=== PATIENT | male | born 1970 | race Caucasian/White ===

== ENCOUNTER 2023-04-20 13:57 | Observation (INO) | payer OTHER, SELFPAY ==
[2023-03-24 13:34] VITALS: BMI 30.2
--- NOTE | 2023-04-19 08:14 | SUR.PREOP ---
Called patient back to answer his questions regarding his upcoming procedure and admission.
--- NOTE | 2023-04-20 12:04 | ADMGEN ---
This patient, Regan Mitchell, was admitted to Medical Room 247-. Patient/family oriented to hospital policies and general routines including ID bracelet, bed and alarms, visiting hours, pain management, procedures, bathroom and other care routines, personal items, smoking policy, room service/diet, and visiting hours. Information on how to activate the Rapid Response Team has been discussed. Patient/Family are encouraged to report perceived risks to care and to ask questions if they do not understand what they are told or what they should do.
--- NOTE | 2023-04-20 12:56 | WPDGICN ---
Assessment and Plan Assessment and plan (1) BRBPR (bright red blood per rectum): Code(s): K62.5 - Hemorrhage of anus and rectum Status: Acute Assessment and Plan: probably perianal source but never had colonoscopy, he is admitted to get bowel prep in the hospital since will be hard for him to do it at home then will do colonoscopy tomorrow (2) Colon cancer screening: Code(s): Z12.11 - Encounter for screening for malignant neoplasm of colon Status: Acute Assessment and Plan: colonoscopy tomorrow (3) Neurogenic bowel: Code(s): K59.2 - Neurogenic bowel, not elsewhere classified Status: Acute Assessment and Plan: from spinal cord injury (4) Spinal cord injury: Status: Acute (5) Lower abdominal pain: Code(s): R10.30 - Lower abdominal pain, unspecified Status: Acute GI Consult Note Consult date/time: 04/20/23 12:56 Reason for consult: hemorrhoids, colon screening, brbpr HPI: Regan Mitchell is a 53 year old male with history of spinal cord injury and T10 paraplegia (since 2000, T7-T12 fracture, S/P T9-L1 posterior spinal fusion after falling off a roof) with neurogenic bowel who never had colonoscopy, normally will have BM every other day but he uses digital stimulation and suppository in order to have BM since he does not have any sensation. For last 2 years noticed intermittent episodes of blood in the stools with his bowel movement and intermittent mild abdominal discomfort. He can not complete bowel prep at home because neurological condition and he is being admitted to have bowel prep in the hospital and tomorrow will do colonoscopy. Review of Systems Constitutional: Constitutional: Denies chills Eyes: Eyes: Denies blurry vision ENT: Reports Normal hearing present Cardiovascular: Cardiovascular: Denies chest pain Respiratory: Respiratory: Denies cough Gastrointestinal: Gastrointestinal: Reports no additional gastrointestinal complaints Musculoskeletal: Comments: paraplegia Integumentary/Breasts: Skin/Breast: Denies rash Neurologic: Comments: paraplegia Psychiatric: Psychiatric: Denies confusion [facility] Past Medical History Medical History (Updated 04/20/23 @ 13:02 by Coy Perez MD) BRBPR (bright red blood per rectum) Colon cancer screening Lower abdominal pain Neurogenic bowel Rectal pain Spinal cord injury Social History Social History Smoking status: Never smoker Alcohol intake: never Substance use: never Substance use type: does not use Do You Feel Safe in your Home?: Yes Lack of Transportation: No Lack of Food: Never True Current Housing: I Have Housing Concerned About Future Housing: No Difficulty Paying Gas/Electric Bills: No Difficulty Paying for Meds: No Currently Unemployed: No Education: Don't Know Difficulty w/ Childcare or Family Care: No Living arrangements: with family Spiritual care concerns: No Meds Home Medications and Allergies Home Medications Medication Instructions Recorded Confirmed Type ascorbate calcium (vitamin C) 500 500 mg PO DAILY 03/09/23 03/24/23 History mg tablet baclofen 20 mg tablet 20 mg PO QHS 03/09/23 03/24/23 History calcium carbonate 500 mg calcium 500 mg PO DAILY 03/09/23 03/24/23 History (1,250 mg) tablet (Oyster Shell Calcium 500) cholecalciferol (vitamin D3) 25 25 mcg PO DAILY 03/09/23 03/24/23 History mcg (1,000 unit) capsule cranberry [id number] 1 tablet PO DAILY 03/09/23 03/24/23 History coagulans 250 mg-30 mg-15 mg tablet (Azo Cranberry Plus Probiotic) desmopressin 0.1 mg tablet 0.1 mg PO BID 03/09/23 03/24/23 History diazepam 5 mg tablet 5 mg PO TID PRN Anxiety 03/09/23 03/24/23 History fesoterodine 8 mg tablet,extended 8 mg PO DAILY 03/09/23 03/24/23 History release 24 hr (Toviaz) hydrocodone 5 mg-acetaminophen 325 1 tablet PO Q8H PRN Pain 03/09/23 03/24/23 His
--- NOTE | 2023-04-20 13:14 | PHAR ---
Pharmacy verified home meds: Trospium CL 20 mg tablets Take 3 tablets by mouth twice daily Fesoterodine 8 mg ER tablets Take 1 tablet by mouth daily
--- NOTE | 2023-04-20 13:53 | PM.IMHP ---
H&P: HPI History of Present Illness Date/Time: 04/20/23 14:00 Chief Complaint: Bowel changes. Narrative: This is a 53-year-old male with history of spinal cord injury and T10 paraplegia and neurogenic bowel who is being directly admitted for bowel prep for colonoscopy tomorrow per Dr. Jorge to evaluate change in bowels including occasional bright red blood per rectum and intermittent abdominal and rectal pain. He is a paraplegic, lives alone, and is unable to do prep at home. He is being admitted in this setting for bowel prep with plans for colonoscopy tomorrow to evaluate these findings. He has completed his prep and reports only passing a small amount of stool on 2 separate occasions. He typically uses digital stimulation ordering of bowel movements at home and he is wondering if he needs to try that this evening. He has not passed much gas and he does have some generalized abdominal discomfort. He denies nausea and vomiting. No significant pain. He also denies fever. Review of Systems Review of Systems: Twelve systems were reviewed and are negative except for as per HPI. [facility] Past Medical History Medical History (Updated 04/20/23 @ 14:10 by Odilia Lancaster PA-C) Neurogenic bladder Neurogenic bowel Spinal cord injury (2000) Fall from roof, fracture T7 through T12. Surgical History Surgical History (Updated 04/20/23 @ 14:10 by Odilia Lancaster PA-C) History of open reduction and internal fixation (ORIF) procedure Left femur fracture. History of spinal surgery T9-L1 fusion. Social History Social History (Updated 04/20/23 @ 14:12 by Odilia Lancaster PA-C) Social History: Surrogate medical decision maker: Gilda Mitchell, mother. Code status: Full code. Smoking status: Never smoker Alcohol intake: never Substance use: never Substance use type: does not use Do You Feel Safe in your Home?: Yes Lack of Transportation: No Lack of Food: Never True Current Housing: I Have Housing Concerned About Future Housing: No Difficulty Paying Gas/Electric Bills: No Difficulty Paying for Meds: No Currently Unemployed: No Education: Don't Know Difficulty w/ Childcare or Family Care: No Living arrangements: with family Spiritual care concerns: No Meds Home Medications and Allergies Home Medications Medication Instructions Recorded Confirmed Type ascorbate calcium (vitamin C) 500 500 mg PO DAILY 03/09/23 03/24/23 History mg tablet baclofen 20 mg tablet 20 mg PO QHS 03/09/23 03/24/23 History calcium carbonate 500 mg calcium 500 mg PO DAILY 03/09/23 03/24/23 History (1,250 mg) tablet (Oyster Shell Calcium 500) cholecalciferol (vitamin D3) 25 25 mcg PO DAILY 03/09/23 03/24/23 History mcg (1,000 unit) capsule cranberry nacn-F-igneuled 1 tablet PO DAILY 03/09/23 03/24/23 History coagulans 250 mg-30 mg-15 mg tablet (Azo Cranberry Plus Probiotic) desmopressin 0.1 mg tablet 0.1 mg PO BID 03/09/23 03/24/23 History diazepam 5 mg tablet 5 mg PO TID PRN Anxiety 03/09/23 03/24/23 History fesoterodine 8 mg tablet,extended 8 mg PO DAILY 03/09/23 03/24/23 History release 24 hr (Toviaz) hydrocodone 5 mg-acetaminophen 325 1 tablet PO Q8H PRN Pain 03/09/23 03/24/23 History mg tablet hydrocortisone 2.5 % topical cream 1 applic RECTAL BID 2 weeks #30 03/09/23 03/24/23 Rx with perineal applicator grams multivitamin (Daily Multi-Vitamin 1 tablet PO DAILY 03/09/23 03/24/23 History tablet) sennosides 8.6 mg capsule (senna) 8.6 mg PO DAILY 03/09/23 03/24/23 History terazosin 10 mg capsule 10 mg PO QHS 03/09/23 03/24/23 History trospium 20 mg tablet 20 mg PO BID 03/09/23 03/24/23 History Allergies Allergy/AdvReac Type Severity Reaction Status Date / Time No Known Allergies Allergy Unknown Verified 04/20/23 12:23 Exam Narrative: General: Well-developed, nontoxic-appearing male lying on his right side in bed. Weight: 90 kg. BMI: 30.2. HEENT
[2023-04-20 14:50] LABS: Anion Gap 4 mmol/L (8-16); Blood Urea Nitrogen 9 mg/dL (9-20); Calcium 8.7 mg/dL (8.4-10.2); Carbon Dioxide 31 mmol/L (22-30); Chloride 103 mmol/L (98-107); Estimated CRCL calculation 153 ml/min; Estimated Glomerular Filt Rate > 60; Glucose 114 mg/dL (65-110); Magnesium 1.9 mg/dL (1.6-2.3); Potassium 3.1 mmol/L (3.4-5.0); Sodium 138 mmol/L (137-145)
[2023-04-20 15:25] VITALS: BP 139/77; PULSE 67; RESP 16; TEMP 36.4; O2SAT 100
[2023-04-20] MEDS: BISACODYL 5 MG TABLET EC 20 MG PO (16:07)
[2023-04-20] MEDS: polyethylene glycoL 3350 238 GM BOTTLE PO (16:07)
[2023-04-20 17:03] VITALS: PULSE 67; RESP 16; O2SAT 100
[2023-04-20 20:34] VITALS: BP 136/68; PULSE 61; RESP 16; TEMP 36.9; O2SAT 97
[2023-04-20] MEDS: TERAZOSIN HCL 5 MG CAPSULE 10 MG PO (21:48)
[2023-04-20] MEDS: HYDROCORTISONE 2.5% CREAM 30 GM TUBE 1 APPLIC RECTAL (21:48)
[2023-04-20] MEDS: BACLOFEN 10 MG TABLET 20 MG PO (21:48)
[2023-04-21] MEDS: MAGNESIUM CITRATE 300 ML BTL PO ×2 (01:06→06:37)
[2023-04-21] MEDS: BISACODYL 10 MG SUPPOSITORY RECTAL ×2 (01:06→16:51)
[2023-04-21] MEDS: POTASSIUM CHLORIDE INJ 40 MEQ in SODIUM CHLORIDE 0.9% IV 500 ML 130 MEQ IVPB (01:06)
[2023-04-21 05:58] LABS: Hematocrit 43.3 % (42.0-52.0); Hemoglobin 14.6 g/dL (14.0-18.0); Mean Corpuscular HGB Conc 33.7 g/dl (32-36); Mean Corpuscular Hemoglobin 29.8 pg (26-34); Mean Corpuscular Volume 88.4 fl (80-100); Mean Platelet Volume 9.6 fl (7.4-10.4); Platelet Count Result 227 k/mm3 (150-375); White Blood Count 8.4 K/mm3 (4.5-10.0)
[2023-04-21 06:11] LABS: Anion Gap 4 mmol/L (8-16); Blood Urea Nitrogen 7 mg/dL (9-20); Calcium 8.2 mg/dL (8.4-10.2); Carbon Dioxide 28 mmol/L (22-30); Chloride 105 mmol/L (98-107); Estimated CRCL calculation 153 ml/min; Estimated Glomerular Filt Rate > 60; Glucose 101 mg/dL (65-110); Magnesium 2.3 mg/dL (1.6-2.3); Sodium 137 mmol/L (137-145)
[2023-04-21 06:59] VITALS: BP 102/60; PULSE 66; RESP 16; TEMP 36.6; O2SAT 95
[2023-04-21] MEDS: CALCIUM CARBONATE (OSCAL) 500 MG TABLET PO (09:00)
[2023-04-21] MEDS: DESMOPRESSIN ACETATE 0.1 MG TABLET PO ×2 (09:00→16:51)
[2023-04-21] MEDS: ASCORBIC ACID 500 MG TABLET PO (09:01)
[2023-04-21] MEDS: SENNOSIDES 8.6 MG TABLET PO (09:01)
[2023-04-21] MEDS: CHOLECALCIFEROL 1,000 UNITS TABLET 1000 UNITS PO (09:01)
[2023-04-21] MEDS: HYDROCORTISONE 2.5% CREAM 30 GM TUBE 1 APPLIC RECTAL (09:02)
--- NOTE | 2023-04-21 10:26 | PM.IMPN ---
Progress Note: A&P Assessment and Plan (1) Bright red blood per rectum: Code(s): K62.5 - Hemorrhage of anus and rectum Status: Acute Assessment and Plan: GI following, plan for colonoscopy either today or tomorrow after stool is running clear. Increased bowel prep ordered for this AM as stools are still not clear. Per GI pt to receive Mag citrate, one bottle. No active S/S of bleeding. Preserved Hgb at 14.6. (2) Rectal pain: Code(s): K62.89 - Other specified diseases of anus and rectum Status: Acute Assessment and Plan: See #1 plan Etiology hemorrhoids vs. fissure vs. other structural findings to be determined by colonoscopy. Await recs of GI service. (3) Lower abdominal pain: Code(s): R10.30 - Lower abdominal pain, unspecified Status: Acute Assessment and Plan: See Plans for #1 and #2 (4) Neurogenic bowel: Code(s): K59.2 - Neurogenic bowel, not elsewhere classified Status: Chronic Assessment and Plan: Currently receiving continued bowel prep Upon discharge, recommend resuming normal bowel regimen. (5) Spinal cord injury: Onset Date: 2000 Status: Chronic Assessment and Plan: Chronic in nature after falling off of a roof and sustaining cord injury at T7-T12 resulting in paraplegia. (6) Colon cancer screening: Code(s): Z12.11 - Encounter for screening for malignant neoplasm of colon Status: Acute Assessment and Plan: Colonoscopy planned. Time Spent With Patient Time with patient: 15 - 25 minutes Subjective Date/time seen: 04/21/23 0830 Interval history: This pt was examined at the bedside today in interval assessment after being admitted for a bowel prep for colonoscopy, as he is unable to do the prep at home independently as he lives alone and is a paraplegic due to injury. Pt. is to have the colonoscopy for bright red blood in the stool consistently for months. Pt has taken his prep as ordered, however, this morning he is still not having clear BM's. GI was notified by nursing staff and a bottle of Magnesium citrate is given. Colonoscopy to be performed either later today or possibly may be tomorrow pending the evaluation of whether or not the stool is running clear. Pt without any acute complaints today, but is concerned that he may not be able to return home immediately after the procedure whenever it is done because he is concerned that he may have continued loose stools and he cannot clean himself up. Review of Systems Review of Systems: All systems reviewed & are unremarkable except as noted in HPI and below Exam Narrative: General: Well-developed, nontoxic-appearing male sitting up in bed at this time currently draining his bladder through self cath. HEENT: Normocephalic, atraumatic. Neck: Supple. Respiratory: Lungs are clear to auscultation bilaterally. Cardiovascular: Regular rate and rhythm with S1-S2. Gastrointestinal: Abdomen is soft, nontender, and nondistended with positive bowel sounds. Skin: Warm and dry. No rash or lesions on limited exam. Extremities: No cyanosis, clubbing, or edema. Radial and pedal pulses intact. Muscle atrophy of the BLE is present. FROM of the upper extremities. Neurological: Alert. Cranial nerves 2-12 are grossly intact. T10 paraplegic. Psychiatric: Pleasant and cooperative with normal mood and affect. Judgment and insight intact. Objective Data Vital Signs Vital Signs: Vital Signs - 24 hr 04/20/23 15:25 04/20/23 17:03 04/20/23 19:46 Temperature 97.6 F Pulse Rate 67 67 Respiratory Rate 16 16 Blood Pressure 139/77 Pulse Oximetry 100 100 Oxygen Delivery Room Air Room Air 04/20/23 20:34 04/21/23 06:59 04/21/23 09:00 Temperature 98.4 F 97.8 F Pulse Rate 61 66 Respiratory Rate 16 16 Blood Pressure 136/68 102/60 Pulse Oximetry 97 95 Oxygen Delivery Room Air Intake/Output Intake/Output: Intake & Output
[2023-04-21] MEDS: SODIUM CHLORIDE 0.9% IV 1,000 ML 100 ML IV CONT ×2 (11:12→20:41)
--- NOTE | 2023-04-21 13:47 | PC.NURSE ---
On 04/21/23, the student, [Tania Osborne], provided care and completed [facility] documentation on this patient. I have reviewed the student's documentation and agree with the findings.
--- NOTE | 2023-04-21 13:58 | PCCCNOTE ---
On 04/21/23, the student, [Sonny Mcneal], provided care and completed [facility] documentation on this patient. I have reviewed the student's documentation and agree with the findings.
[2023-04-21 14:00] VITALS: BP 133/74; PULSE 69; RESP 14; TEMP 36.2; O2SAT 98
--- NOTE | 2023-04-21 16:21 | WPDGIPROGNO ---
Progress Note: A&P Assessment and Plan (1) Bright red blood per rectum: Code(s): K62.5 - Hemorrhage of anus and rectum Status: Acute Assessment and Plan: colonoscopy tomorrow it seems that was not fully clean today (2) Neurogenic bowel: Code(s): K59.2 - Neurogenic bowel, not elsewhere classified Status: Chronic Assessment and Plan: this is causing constipation and difficulty to have BM will order more enema and supp (3) Spinal cord injury: Onset Date: 2000 Status: Chronic (4) Colon cancer screening: Code(s): Z12.11 - Encounter for screening for malignant neoplasm of colon Status: Acute Subjective Date/time seen: 04/21/23 16:21 Interval history: he still had hard stool and had to remove manually despite bowel prep Review of Systems Review of Systems: All systems reviewed & are unremarkable except as noted in HPI and below Exam Const: General: comfortable HENMT: Face/Nose/Sinus: Normal nares present Eyes: Sclera: sclerae normal Neck: Neck: supple Resp: Effort & Inspection: normal respiratory effort Cardio: Rate: regular rate GI: GI Palp: Yes Soft to palpation and No Tenderness to palpation present (GI) Auscultation: normal bowel sounds Skin: General skin exam: normal color Neuro: General: No gait normal Other: paraplegia Extrem: General: normal to inspection Psych: Affect: normal affect Objective Data Vital Signs Vital Signs: Vital Signs - 24 hr 04/20/23 17:03 04/20/23 19:46 04/20/23 20:34 Temperature 98.4 F Pulse Rate 67 61 Respiratory Rate 16 16 Blood Pressure 136/68 Pulse Oximetry 100 97 Oxygen Delivery Room Air Room Air 04/21/23 06:59 04/21/23 09:00 04/21/23 14:00 Temperature 97.8 F 97.1 F L Pulse Rate 66 69 Respiratory Rate 16 14 Blood Pressure 102/60 133/74 Pulse Oximetry 95 98 Oxygen Delivery Room Air Intake/Output Intake/Output: Intake & Output 04/18/23 04/19/23 04/20/23 04/21/23 23:59 23:59 23:59 23:59 Intake Total 1290 300 Output Total 200 3350 Balance 1090 -3050 Meds/Results Medications: Active Medications Generic Name Dose Route Start Last Admin Trade Name Freq PRN Reason Stop Dose Admin Acetaminophen 650 mg 04/20/23 13:57 Acetaminophen 325 Mg Tablet PO Q4H PRN Mild Pain (1-3) or Fever Hydrocodone Bitart/Acetaminophen 1 tab 04/20/23 14:12 Hydrocodone/Acetaminophen (*Crx) 5-325 Mg Tablet PO Q8H PRN Pain Ascorbic Acid 500 mg 04/21/23 09:00 04/21/23 09:01 Ascorbic Acid 500 Mg Tablet PO 500 mg DAILY SRINIVASA Administration Baclofen 20 mg 04/20/23 21:00 04/20/23 21:48 Baclofen 10 Mg Tablet PO 20 mg QHS SRINIVASA Administration Bisacodyl 20 mg 04/21/23 17:00 Bisacodyl 5 Mg Tablet Ec PO 04/21/23 17:01 ONCE ONE Bisacodyl 10 mg 04/21/23 17:00 Bisacodyl 10 Mg Suppository RECTAL BID [facility] Calcium Carbonate 500 mg 04/21/23 09:00 04/21/23 09:00 Calcium Carbonate (Oscal) 500 Mg Tablet PO 500 mg DAILY SRINIVASA Administration Desmopressin Acetate 0.1 mg 04/20/23 17:00 04/21/23 09:00 Desmopressin Acetate 0.1 Mg Tablet PO 0.1 mg BID SRINIVASA Administration Diazepam 5 mg 04/20/23 14:12 Diazepam (*Crx) 5 Mg Tablet PO TID PRN Anxiety Hydrocortisone 1 applic 04/20/23 21:00 04/21/23 09:02 Hydrocortisone 2.5% Cream 30 Gm Tube RECTAL 05/20/23 20:59 1 applic Q12HR SRINIVASA Administration Sodium Chloride 1,000 mls @ 100 mls/hr 04/21/23 10:35 04/21/23 11:12 Normal Saline Iv IV CONT 100 mls/hr .Q10H SRINIVASA Administration Magnesium Citrate 300 ml 04/22/23 02:00 Magnesium Citrate 300 Ml Btl PO 04/22/23 02:01 ONCE ONE Multivitamins Therapeutic 1 tablet 04/21/23 09:00 04/21/23 09:01 Multivitamins Therapeutic Tab (*Bkc) PO Not Given DAILY SRINIVASA Non-Formulary Medication 1 tablet 04/21/23 09:00 Cranberry [id number] Coag [Azo Cranbe
[2023-04-21] MEDS: BISACODYL 5 MG TABLET EC 20 MG PO (16:50)
[2023-04-21] MEDS: polyethylene glycoL 3350 238 GM BOTTLE PO (16:50)
[2023-04-21 19:30] VITALS: BP 129/65; PULSE 64; RESP 20; TEMP 37.1; O2SAT 98
[2023-04-21] MEDS: ONDANSETRON INJ 4 MG/2 ML VIAL IV PUSH (20:14)
[2023-04-21] MEDS: TERAZOSIN HCL 5 MG CAPSULE 10 MG PO (20:55)
[2023-04-21] MEDS: BACLOFEN 10 MG TABLET 20 MG PO (20:55)
[2023-04-22] VITALS (7 sets, daily range): BP systolic 107–139; BP diastolic 64–81; PULSE 58–68; RESP 13–21; TEMP 36.5–37.1; O2SAT 97–100
[2023-04-22] MEDS: MAGNESIUM CITRATE 300 ML BTL PO (01:38)
[2023-04-22] MEDS: ONDANSETRON INJ 4 MG/2 ML VIAL IV PUSH (01:44)
[2023-04-22 05:44] LABS: Basophils Percent Auto 0.6 % (0.2-1.2); Eosinophils Absolute Auto 0.2 K/mm3 (0-0.3); Eosinophils Percent Auto 2.3 % (0-4.4); Hematocrit 38.7 % (42.0-52.0); Hemoglobin 13.2 g/dL (14.0-18.0); Immature Granulocyte Absolute 0.02 K/mm3 (0.00-0.031); Immature Granulocyte Percent A 0.3 % (0-0.5); Lymphocytes Absolute Auto 1.17 K/mm3 (0.9-3.2); Lymphocytes Percent Auto 17.6 % (18.3-44.2); Mean Corpuscular HGB Conc 34.1 g/dl (32-36); Mean Platelet Volume 9.2 fl (7.4-10.4); Monocytes Absolute Auto 0.8 K/mm3 (0.1-0.6); Neutrophils Absolute Auto 4.5 K/mm3 (1.3-6.7); Neutrophils Percent Auto 67.2 % (45.5-73.1); Platelet Count Result 195 k/mm3 (150-375); White Blood Count 6.6 K/mm3 (4.5-10.0)
[2023-04-22 05:55] LABS: Alanine Aminotransferase 13 U/L (6-50); Albumin Level 2.9 g/dL (3.5-5.1); Alkaline Phosphatase 66 U/L (38-126); Anion Gap 3 mmol/L (8-16); Aspartate Amino Transferase 21 U/L (17-59); Bilirubin,Total 0.9 mg/dL (0.2-1.3); Blood Urea Nitrogen 4 mg/dL (9-20); Calcium 7.6 mg/dL (8.4-10.2); Carbon Dioxide 25 mmol/L (22-30); Chloride 106 mmol/L (98-107); Estimated CRCL calculation 153 ml/min; Estimated Glomerular Filt Rate > 60; Glucose 97 mg/dL (65-110); Magnesium 2.5 mg/dL (1.6-2.3); Potassium 3.3 mmol/L (3.4-5.0); Sodium 134 mmol/L (137-145)
[2023-04-22] MEDS: SODIUM CHLORIDE 0.9% IV 1,000 ML 100 ML IV CONT (06:48)
[2023-04-22] MEDS: BISACODYL 10 MG SUPPOSITORY RECTAL (08:40)
[2023-04-22] MEDS: SENNOSIDES 8.6 MG TABLET PO (08:40)
[2023-04-22] MEDS: CALCIUM CARBONATE (OSCAL) 500 MG TABLET PO (08:40)
[2023-04-22] MEDS: DESMOPRESSIN ACETATE 0.1 MG TABLET PO ×2 (08:40→16:49)
[2023-04-22] MEDS: CHOLECALCIFEROL 1,000 UNITS TABLET 1000 UNITS PO (08:40)
[2023-04-22] MEDS: ASCORBIC ACID 500 MG TABLET PO (08:40)
--- NOTE | 2023-04-22 09:24 | PM.IMPN ---
Progress Note: A&P Assessment and Plan (1) Bright red blood per rectum: Code(s): K62.5 - Hemorrhage of anus and rectum Status: Acute Assessment and Plan: GI following, plan for colonoscopy either today or tomorrow after stool is running clear. Increased bowel prep ordered for this AM as stools are still not clear. Per GI pt to receive Mag citrate, one bottle. No active S/S of bleeding. Preserved Hgb at 14.6. 04/22/23: Awaiting enema for continued clean out and attempt at scope today. Pt performing self digital stim to assist with defecation. Further treatment depending upon outcome and dx from scope. (2) Rectal pain: Code(s): K62.89 - Other specified diseases of anus and rectum Status: Acute Assessment and Plan: See #1 plan Etiology hemorrhoids vs. fissure vs. other structural findings to be determined by colonoscopy. Await recs of GI service. (3) Lower abdominal pain: Code(s): R10.30 - Lower abdominal pain, unspecified Status: Acute Assessment and Plan: See Plans for #1 and #2 (4) Neurogenic bowel: Code(s): K59.2 - Neurogenic bowel, not elsewhere classified Status: Chronic Assessment and Plan: Currently receiving continued bowel prep Upon discharge, recommend resuming normal bowel regimen. 04/22/23: Pt utilizing digital stimulation to assist with defecation. (5) Spinal cord injury: Onset Date: 2000 Status: Chronic Assessment and Plan: Chronic in nature after falling off of a roof and sustaining cord injury at T7-T12 resulting in paraplegia. (6) Colon cancer screening: Code(s): Z12.11 - Encounter for screening for malignant neoplasm of colon Status: Acute Assessment and Plan: Colonoscopy planned. Time Spent With Patient Time with patient: 15 - 25 minutes Subjective Date/time seen: 04/22/23 0838 Interval history: Pt was examined this AM as he was unable to have Colonoscopy yesterday as he was not adequately cleaned out. He is to receive another enema again today and then hopefully have his colonoscopy. He does complain today about lower abdominal cramping. No other symptoms to report and no other acute complaints. Pt. appears very anxious about the current situation and is concerned that they will not be able to do procedure due to inadequate prep. He has been doing digital stim for assisting with BM's. Nurse also notified of the same. Review of Systems Review of Systems: All systems reviewed & are unremarkable except as noted in HPI and below Exam Narrative: General: Well-developed, nontoxic-appearing lying supine in bed at this time in no acute distress. HEENT: Normocephalic, atraumatic. Neck: Supple. FROM Respiratory: Lungs are clear to auscultation bilaterally. Cardiovascular: Regular rate and rhythm with S1-S2. Gastrointestinal: Abdomen is soft, TTP bilateral lower quadrants and suprapubic region, and nondistended with positive bowel sounds. Skin: Warm and dry. No rash or lesions on limited exam. Extremities: No cyanosis, clubbing, or edema. Radial and pedal pulses intact. Muscle atrophy of the BLE is present. FROM of the upper extremities. Neurological: Alert. Cranial nerves 2-12 are grossly intact. T10 paraplegic. Psychiatric: Pleasant and cooperative with anxious mood and affect. Judgment and insight intact. Objective Data Vital Signs Vital Signs: Vital Signs - 24 hr 04/21/23 14:00 04/21/23 19:30 04/21/23 20:20 Temperature 97.1 F L 98.7 F Pulse Rate 69 64 Respiratory Rate 14 20 Blood Pressure 133/74 129/65 Pulse Oximetry 98 98 Oxygen Delivery Room Air 04/22/23 04:02 04/22/23 08:00 Temperature 97.7 F Pulse Rate 64 Respiratory Rate 20 Blood Pressure 113/64 Pulse Oximetry 97 Oxygen Delivery Room Air Intake/Output Intake/Output: Intake & Output 04/19/23 04/20/23 04/21/23 04/22/23 23:59 23:59 23:59 23:59 Intake Total 1290 1780 100
[2023-04-22] MEDS: LACTATED RINGERS 1,000 ML 150 ML IV CONT (10:51)
--- NOTE | 2023-04-22 11:07 | PC.NURSE ---
1040 am pt off unit for procedure.
--- NOTE | 2023-04-22 11:17 | WPDANESEPPF ---
Anes - Initial Pre Proc Eval Procedure: Operation Date: 04/22/23 14:30 Proposed Procedures p Colonoscopy - Coy Perez MD Date/Time: 04/22/23 11:17 Surgeon: MAXIMINO Malave Pre Op Diagnosis: Lower Abdominal pain,hemorrhage of anus/rectum Patient Data Age: 53 Gender: M Height: 1.73 m Weight: 90 kg Last Vital Signs Temp 98.7 F 04/22/23 10:51 Pulse 68 04/22/23 10:51 Resp 18 04/22/23 10:51 BP 136/70 04/22/23 10:51 Pulse Ox 100 04/22/23 10:51 O2 Del Method Room Air 04/22/23 08:00 Allergies Allergy/AdvReac Type Severity Reaction Status Date / Time No Known Allergies Allergy Unknown Verified 04/20/23 12:23 Home Medications Medication Instructions Recorded Confirmed Type ascorbate calcium (vitamin C) 500 500 mg PO DAILY 03/09/23 03/24/23 History mg tablet baclofen 20 mg tablet 20 mg PO QHS 03/09/23 03/24/23 History calcium carbonate 500 mg calcium 500 mg PO DAILY 03/09/23 03/24/23 History (1,250 mg) tablet (Oyster Shell Calcium 500) cholecalciferol (vitamin D3) 25 25 mcg PO DAILY 03/09/23 03/24/23 History mcg (1,000 unit) capsule cranberry [id number]-[id number]-poyvclmd 1 tablet PO DAILY 03/09/23 03/24/23 History coagulans 250 mg-30 mg-15 mg tablet (Azo Cranberry Plus Probiotic) desmopressin 0.1 mg tablet 0.1 mg PO BID 03/09/23 03/24/23 History diazepam 5 mg tablet 5 mg PO TID PRN Anxiety 03/09/23 03/24/23 History fesoterodine 8 mg tablet,extended 8 mg PO DAILY 03/09/23 03/24/23 History release 24 hr (Toviaz) hydrocodone 5 mg-acetaminophen 325 1 tablet PO Q8H PRN Pain 03/09/23 03/24/23 History mg tablet hydrocortisone 2.5 % topical cream 1 applic RECTAL BID 2 weeks #30 03/09/23 03/24/23 Rx with perineal applicator grams multivitamin (Daily Multi-Vitamin 1 tablet PO DAILY 03/09/23 03/24/23 History tablet) sennosides 8.6 mg capsule (senna) 8.6 mg PO DAILY 03/09/23 03/24/23 History terazosin 10 mg capsule 10 mg PO QHS 03/09/23 03/24/23 History trospium 20 mg tablet 20 mg PO BID 03/09/23 03/24/23 History Laboratory Tests 04/22/23 05:23 WBC 6.6 K/mm3 (4.5-10.0) RBC 4.40 L M/mm3 (4.6-6.20) Hgb 13.2 L g/dL (14.0-18.0) Hct 38.7 L % (42.0-52.0) MCV 88.0 fl (80-100) MCH 30.0 pg (26-34) MCHC 34.1 g/dl (32-36) RDW 13.0 % (11.5-14.5) Plt Count 195 k/mm3 (150-375) MPV 9.2 fl (7.4-10.4) Immature Gran % (Auto) 0.3 % (0-0.5) Neut % (Auto) 67.2 % (45.5-73.1) Lymph % (Auto) 17.6 L % (18.3-44.2) [place] % (Auto) 12.0 H % (2.6-8.5) Eos % (Auto) 2.3 % (0-4.4) Baso % (Auto) 0.6 % (0.2-1.2) Lymph # (Auto) 1.17 K/mm3 (0.9-3.2) [place] # (Auto) 0.8 H K/mm3 (0.1-0.6) Eos # (Auto) 0.2 K/mm3 (0-0.3) Baso # (Auto) 0.0 K/mm3 (0.0-0.1) Abs Immat Gran (auto) 0.02 K/mm3 (0.00-0.031) Absolute Neuts (auto) 4.5 K/mm3 (1.3-6.7) Absolute Nucleated RBC 0.0 K/mm3 (0.0-0.012) Nucleated RBC % 0.0 % (0.0-0.2) Sodium 134 L mmol/L (137-145) Potassium 3.3 L mmol/L (3.4-5.0) Chloride 106 mmol/L (98-107) Carbon Dioxide 25 mmol/L (22-30) Anion Gap 3 L mmol/L (8-16) BUN 4 L mg/dL (9-20) Creatinine 0.50 L mg/dL (0.7-1.3) Estim Creat Clear Calc 153 ml/min Estimated GFR > 60 (59 - ) Glucose 97 mg/dL (65-110) Calcium 7.6 L mg/dL (8.4-10.2) Magnesium 2.5 H mg/dL (1.6-2.3) Total Bilirubin 0.9 mg/dL (0.2-1.3) AST 21 U/L (17-59) ALT 13 U/L (6-50) Alkaline Phosphatase 66 U/L (38-126) Total Protein 5.0 L g/dL (6.3-8.2) Albumin 2.9 L g/dL (3.5-5.1) Patient hx anesthesia problems: none Family hx anesthesia problems: none Results Review: All pre-operative results and documents have been reviewed as part of the pre-operative evaluation. [facility] Past Medical History Medical History (Updated 04/21/23 @ 10:35 by Natalie Magaña APN
--- NOTE | 2023-04-22 12:18 | PC.NURSE ---
pt back on floor at this time via stretcher.
[2023-04-22] MEDS: TERAZOSIN HCL 5 MG CAPSULE 10 MG PO (20:41)
[2023-04-22] MEDS: BACLOFEN 10 MG TABLET 20 MG PO (20:41)
[2023-04-22] MEDS: diazePAM (*CRX) 5 MG TABLET PO (20:41)
[2023-04-23 05:10] LABS: Hematocrit 37.4 % (42.0-52.0); Hemoglobin 12.6 g/dL (14.0-18.0); Mean Corpuscular HGB Conc 33.7 g/dl (32-36); Mean Corpuscular Hemoglobin 30.1 pg (26-34); Mean Corpuscular Volume 89.3 fl (80-100); Mean Platelet Volume 9.2 fl (7.4-10.4); Platelet Count Result 183 k/mm3 (150-375); Red Blood Count 4.19 M/mm3 (4.6-6.20); Red Cell Distribution Width 13.2 % (11.5-14.5); White Blood Count 8.1 K/mm3 (4.5-10.0)
[2023-04-23 05:25] LABS: Alanine Aminotransferase 13 U/L (6-50); Albumin Level 2.8 g/dL (3.5-5.1); Alkaline Phosphatase 66 U/L (38-126); Anion Gap 1 mmol/L (8-16); Aspartate Amino Transferase 22 U/L (17-59); Bilirubin,Total 0.6 mg/dL (0.2-1.3); Blood Urea Nitrogen 11 mg/dL (9-20); Calcium 7.8 mg/dL (8.4-10.2); Carbon Dioxide 29 mmol/L (22-30); Chloride 106 mmol/L (98-107); Estimated CRCL calculation 130 ml/min; Estimated Glomerular Filt Rate > 60; Glucose 90 mg/dL (65-110); Potassium 3.3 mmol/L (3.4-5.0); Sodium 136 mmol/L (137-145)
[2023-04-23 06:00] VITALS: BP 112/56; PULSE 63; RESP 18; TEMP 36.5; O2SAT 99
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
[2023-04-23] MEDS: MULTIVITAMINS THERAPEUTIC TAB (*BKC) 1 TABLET PO (09:37)
[2023-04-23] MEDS: CHOLECALCIFEROL 1,000 UNITS TABLET 1000 UNITS PO (09:37)
[2023-04-23] MEDS: CALCIUM CARBONATE (OSCAL) 500 MG TABLET PO (09:37)
[2023-04-23] MEDS: ASCORBIC ACID 500 MG TABLET PO (09:37)
[2023-04-23] MEDS: DESMOPRESSIN ACETATE 0.1 MG TABLET PO (09:37)
[2023-04-23] MEDS: SENNOSIDES 8.6 MG TABLET PO (09:37)
[2023-04-23] MEDS: diazePAM (*CRX) 5 MG TABLET PO (09:48)
== END 2023-04-23 13:20 | disposition home or self-care (01) ==
PROVIDERS: Nurse Practitioner Family; Physician Assistant; Admitting Provider Internal Medicine Gastroenterology; Visit Provider Nurse Practitioner Adult Health
PROC: 0DJD8ZZ Inspection of Lower Intestinal Tract, Via Natural or Artificial Opening Endoscopic (ICD-10-PCS; CPT 45378; principal; 2023-04-22 14:30)
DX: D12.2 Benign neoplasm of ascending colon (principal); D12.3 Benign neoplasm of transverse colon; K59.2 Neurogenic bowel, not elsewhere classified; R10.30 Lower abdominal pain, unspecified; K62.89 Other specified diseases of anus and rectum; K59.00 Constipation, unspecified; G82.20 Paraplegia, unspecified; S24.104S Unspecified injury at T11-T12 level of thoracic spinal cord, sequela; W13.2XXS Fall from, out of or through roof, sequela; E66.9 Obesity, unspecified; Z68.30 Body mass index [BMI] 30.0-30.9, adult
CPT/HCPCS: 45385; 45380; 36415; 80048; 80053; 83735; 85025; 85027; 88305; 96374; 96375; A9270; G0378; J2405; J2704; J3480; J7030; J7040; J7120

== ENCOUNTER 2023-07-12 09:55 | Outpatient (CLI) | payer OTHER, SELFPAY ==
--- NOTE | ~2023-07-12 | CT_ITS ---
Clinical Indication: Paraplegia, pain CT Scan of the Chest, Abdomen, and Pelvis with Contrast: Technique: Contiguous sections were acquired throughout the chest, abdomen, and pelvis after intraven ous administration of 100 cc of Omnipaque 350. Dose reduction technique was used on this scan by belen fu automated exposure control and iterative reconstruction technique. The dose-length product (DL P) was 1207.28 mGy-cm. Findings: There is no evidence of any significant mediastinal, hilar or axillary lymphadenopathy. The mediastin al soft tissues and vascular structures appear normal. There is no evidence of pleural or pericardial effusion. The lungs are clear. No pulmonary nodules or infiltrates are noted. The liver, spleen, pancreas, gallbladder, adrenals and kidneys are within normal limits. No evidence of aortic aneurysm. No lymphadenopathy. No bowel obstruction or bowel wall thickening. There is no evidence to suggest acute appendicitis. Sm all fat-containing umbilical hernia present. Urinary bladder is unremarkable. Prostate gland and seminal vesicles are unremarkable. No ascites. St reak artifact from left hip orthopedic hardware present. Impression: No acute abnormality. Small fat-containing umbilical hernia. Reviewed, dictated and finalized at [facility]. Impression: No acute abnormality. Small fat-containing umbilical hernia.
== END 2023-07-12 09:56 | disposition home or self-care (01) ==
LOC: ANHIMG 10:09
PROVIDERS: PCP Emergency Medicine
DX: K42.9 Umbilical hernia without obstruction or gangrene (principal); M79.2 Neuralgia and neuritis, unspecified; G82.20 Paraplegia, unspecified
CPT/HCPCS: 71260; 74177; Q9967

== ENCOUNTER 2023-08-01 08:26 | Outpatient (CLI) | payer OTHER, SELFPAY ==
[2023-08-01 09:10] LABS: Alanine Aminotransferase 15 U/L (6-50); Albumin Level 3.7 g/dL (3.5-5.1); Alkaline Phosphatase 63 U/L (38-126); Anion Gap 3 mmol/L (4-12); Aspartate Amino Transferase 22 U/L (17-59); Bilirubin,Total 0.6 mg/dL (0.2-1.3); Blood Urea Nitrogen 13 mg/dL (9-20); Calcium 8.7 mg/dL (8.4-10.2); Carbon Dioxide 29 mmol/L (22-30); Chloride 106 mmol/L (98-107); Cholesterol 154 mg/dL (0-200); Estimated Glomerular Filt Rate > 60; Glucose 91 mg/dL (65-110); HDL Direct 45 mg/dL; Potassium 3.8 mmol/L (3.4-5.0); Sodium 138 mmol/L (137-145); Triglycerides 60 mg/dL (<150)
[2023-08-01 09:21] LABS: LDL Cholesterol Direct 95 mg/dL
[2023-08-01 09:41] LABS: Prostate Specific Antigen 2.2 ng/mL (< OR = 4.0)
[2023-08-01 10:05] LABS: Vitamin D 25 Hydroxy 56.4 ng/mL
== END 2023-08-01 08:27 | disposition home or self-care (01) ==
LOC: ANHLAB 08:28
PROVIDERS: PCP Emergency Medicine; Visit Provider Emergency Medicine
DX: Z12.5 Encounter for screening for malignant neoplasm of prostate (principal); E55.9 Vitamin D deficiency, unspecified; E78.5 Hyperlipidemia, unspecified; I10 Essential (primary) hypertension
CPT/HCPCS: 36415; 80053; 80061; 82306; 84153; G0103

== ENCOUNTER 2023-08-04 08:22 | Outpatient (CLI) | payer OTHER, SELFPAY ==
[2023-08-04 09:22] LABS: Hematocrit 44.4 % (42.0-52.0); Hemoglobin 14.8 g/dL (14.0-18.0); Mean Corpuscular HGB Conc 33.3 g/dl (32-36); Mean Corpuscular Hemoglobin 29.8 pg (26-34); Mean Corpuscular Volume 89.5 fl (80-100); Mean Platelet Volume 9.4 fl (7.4-10.4); Platelet Count Result 238 k/mm3 (150-375); Red Blood Count 4.96 M/mm3 (4.6-6.20); Red Cell Distribution Width 13.1 % (11.5-14.5); White Blood Count 7.9 K/mm3 (4.5-10.0)
== END 2023-08-04 08:23 | disposition home or self-care (01) ==
PROVIDERS: PCP Emergency Medicine; Visit Provider Emergency Medicine
DX: D64.9 Anemia, unspecified (principal)
CPT/HCPCS: 36415; 85027

== ENCOUNTER 2023-09-12 12:15 | Outpatient (CLI) | payer OTHER, SELFPAY ==
[2023-09-12 12:57] LABS: Hematocrit 42.7 % (42.0-52.0); Hemoglobin 14.3 g/dL (14.0-18.0); Mean Corpuscular HGB Conc 33.5 g/dl (32-36); Mean Corpuscular Hemoglobin 29.7 pg (26-34); Mean Corpuscular Volume 88.6 fl (80-100); Mean Platelet Volume 9.4 fl (7.4-10.4); Platelet Count Result 206 k/mm3 (150-375); Red Blood Count 4.82 M/mm3 (4.6-6.20); Red Cell Distribution Width 13.4 % (11.5-14.5); White Blood Count 6.8 K/mm3 (4.5-10.0)
[2023-09-12 13:06] LABS: Prothrombin Time 13.3 Seconds (11.1-14.7)
[2023-09-12 13:07] LABS: Partial Thromboplastin Time 27.9 Seconds (22.3-36.8)
== END 2023-09-12 12:16 | disposition home or self-care (01) ==
PROVIDERS: PCP Emergency Medicine; Visit Provider Emergency Medicine
DX: D69.9 Hemorrhagic condition, unspecified (principal)
CPT/HCPCS: 36415; 85027; 85610; 85730

== ENCOUNTER 2023-09-27 09:27 | Emergency (ER) | payer OTHER, SELFPAY ==
[2023-09-27 09:34] VITALS: BP 132/77; PULSE 80; RESP 16; TEMP 36.6; O2SAT 100
[2023-09-27 09:38] VITALS: BP 132/77; PULSE 80; RESP 16; TEMP 36.6; O2SAT 100
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
== END 2023-09-27 09:55 | disposition home or self-care (01) ==
PROVIDERS: Emergency Provider Nurse Practitioner Family; PCP Emergency Medicine
DX: R05.9 Cough, unspecified (principal)
CPT/HCPCS: 99213; G0463

== ENCOUNTER 2023-12-28 08:38 | Outpatient (RCR) | payer OTHER, SELFPAY ==
[2023-12-28 09:44] VITALS: BMI 28.9
== END 2024-03-27 23:59 | disposition home or self-care (01) ==
LOC: ANHWOC 08:38
PROVIDERS: PCP Emergency Medicine; Visit Provider Emergency Medicine
DX: L98.9 Disorder of the skin and subcutaneous tissue, unspecified (principal)
CPT/HCPCS: 99213; G0463

== ENCOUNTER 2024-02-01 09:52 | Outpatient (CLI) | payer OTHER, SELFPAY ==
--- NOTE | 2024-02-01 11:00 | NEURO_ITS ---
Impression: # Complains of numbness of hands. Non-diabetic, wheelchair bound paraparetic T10 level. # Mild sensory Carpal Tunnel Syndrome. # No ulnar neuropathy. # Normal needle/EMG exam. Nerve Conduction Studies Anti Sensory Summary Table Stim Site NR Peak (ms) P-T Amp (?V) Site1 Site2 Delta-P (ms) Dist (cm) Juan Jose (m/s) Left Median Anti Sensory (2-3nd Digit) Wrist 4.4 29.7 Wrist 2-3nd Digit 4.4 14.0 32 Wrist 4.9 23.2 Wrist 2-3nd Digit 4.4 14.0 32 Right Median Anti Sensory (2-3nd Digit) Wrist 3.9 33.3 Wrist 2-3nd Digit 3.9 14.0 36 Wrist 4.0 43.3 Wrist 2-3nd Digit 3.9 14.0 36 Left Radial Anti Sensory (Base 1st Digit) Wrist 2.1 29.0 Wrist Base 1st Digit 2.1 0.0 Right Radial Anti Sensory (Base 1st Digit) Wrist 2.6 19.0 Wrist Base 1st Digit 2.6 0.0 Left Ulnar Anti Sensory (5th Digit) Wrist 2.8 44.1 Wrist 5th Digit 2.8 14.0 50 Right Ulnar Anti Sensory (5th Digit) Wrist 3.0 43.9 Wrist 5th Digit 3.0 14.0 47 Motor Summary Table Stim Site NR Onset (ms) O-P Amp (mV) Site1 Site2 Delta-0 (ms) Dist (cm) Juan Jose (m/s) Left Median Motor (Abd Poll Brev) Wrist 3.7 0.8 Elbow Wrist 5.9 30.0 51 Elbow 9.6 0.7 Right Median Motor (Abd Poll Brev) Wrist 3.4 6.9 Elbow Wrist 5.4 29.0 54 Elbow 8.8 4.6 Left Ulnar Motor (Abd Dig Minimi) Wrist 2.9 4.9 A Elbow Wrist 5.6 31.0 55 A Elbow 8.5 4.7 Right Ulnar Motor (Abd Dig Minimi) Wrist 2.9 6.9 A Elbow Wrist 5.5 31.0 56 A Elbow 8.4 5.7 F Wave Studies NR F-Lat (ms) L-R F-Lat (ms) Left Median (Mrkrs) (Abd Poll Brev) 29.04 0.64 Right Median (Mrkrs) (Abd Poll Brev) 28.40 0.64 Left Ulnar (Mrkrs) (Abd Dig Min) 29.69 0.31 Right Ulnar (Mrkrs) (Abd Dig Min) 29.38 0.31 EMG Side Muscle Nerve Root Ins Act Fibs Amp Dur Recrt Comment Right 1stDorInt Ulnar C8-T1 Nml Nml Nml Nml Nml Right Ext Indicis Radial (Post Int) C7-8 Nml Nml Nml Nml Nml Right Ext Digitorum Radial (Post Int) C7-8 Nml Nml Nml Nml Nml Right BrachioRad Radial C5-6 Nml Nml Nml Nml Nml Right PronatorTeres Median C6-7 Nml Nml Nml Nml Nml Right Abd Poll Brev Median C8-T1 Nml Nml Nml Nml Nml Right ABD Dig Min Ulnar C8-T1 Nml Nml Nml Nml Nml Left 1stDorInt Ulnar C8-T1 Nml Nml Nml Nml Nml Left Ext Indicis Radial (Post Int) C7-8 Nml Nml Nml Nml Nml Left Ext Digitorum Radial (Post Int) C7-8 Nml Nml Nml Nml Nml Left BrachioRad Radial C5-6 Nml Nml Nml Nml Nml Left PronatorTeres Median C6-7 Nml Nml Nml Nml Nml Left Abd Poll Brev Median C8-T1 Nml Nml Nml Nml Nml Left ABD Dig Min Ulnar C8-T1 Nml Nml Nml Nml Nml MTDD
== END 2024-02-01 09:53 | disposition home or self-care (01) ==
PROVIDERS: PCP Emergency Medicine; Visit Provider Emergency Medicine
DX: G56.03 Carpal tunnel syndrome, bilateral upper limbs (principal); Z99.3 Dependence on wheelchair
CPT/HCPCS: 95886; 95911

== ENCOUNTER 2024-02-29 11:28 | Outpatient (CLI) | payer OTHER, SELFPAY ==
--- NOTE | ~2024-02-29 | XR_ITS ---
[id number] Ordering provider: Myles Maddox MD History: . GENERAL PAIN, HX SURGERY . Comparison: None. FINDINGS: VERTEBRAL BODIES: Normal height and alignment. No visible fracture or subluxation. The dens is intact . Degenerative changes of the spine. DISK SPACES: Mild Narrowing of the disc C4-C5. Otherwise, normal. Multilevel uncovertebral joint oste oarthritic changes. PARASPINOUS SOFT TISSUES: No prevertebral soft tissue swelling. IMPRESSION: No acute osseous abnormality cervical spine. Reviewed, dictated and finalized at location A. [employer]
--- NOTE | ~2024-02-29 | XR_ITS ---
3 VIEWS LUMBAR SPINE Ordering provider: Myles Maddox MD History: . GENERAL CHRONIC PAIN, PT IN WHEELCHAIR . Comparison: None. FINDINGS: VERTEBRAL BODIES:Postoperative changes in the lower thoracic area and upper lumbar area. No visible fracture or subluxation. Degenerative changes of the spine. Dextroscoliosis. DISK SPACES: Severe narrowing of the disc L1-L2. Moderate narrowing of the disc L4-L5. Mild narrowing of the disc L3-L4 and L5-S1. Multilevel facet joint disease. Bilateral sacroiliacs. SOFT TISSUES: Normal. IMPRESSION: No acute osseous abnormality lumbar spine. Reviewed, dictated and finalized at location A. [employer]
--- NOTE | ~2024-02-29 | XR_ITS ---
3 VIEWS THORACIC SPINE Ordering provider: Myles Maddox MD History: . GENERAL PAIN, HX SURGERY . Comparison: None. FINDINGS: VERTEBRAL BODIES: Postoperative changes in the thoracolumbar area. Destructive changes seen in T11 po steriorly. Otherwise, Normal height and alignment. No visible fracture or subluxation. Degenerative c hanges of the spine. DISK SPACES: Multilevel narrowing of the disc in the upper thoracic area. SOFT TISSUES: Normal. IMPRESSION: No acute osseous abnormality of the thoracic spine. Postoperative changes. Multilevel degenerative disc disease. Reviewed, dictated and finalized at location A. RONMENTAL MANAGER
== END 2024-02-29 11:29 | disposition home or self-care (01) ==
PROVIDERS: PCP Emergency Medicine; Visit Provider Emergency Medicine
DX: M51.34 Other intervertebral disc degeneration, thoracic region (principal); Z99.3 Dependence on wheelchair; Z98.890 Other specified postprocedural states; G89.29 Other chronic pain
CPT/HCPCS: 72040; 72070; 72100

== ENCOUNTER 2024-03-15 08:28 | Outpatient (CLI) | payer OTHER, SELFPAY ==
[2024-03-15 10:05] LABS: Alanine Aminotransferase 16 U/L (6-50); Albumin Level 3.5 g/dL (3.5-5.1); Alkaline Phosphatase 71 U/L (38-126); Anion Gap -3 mmol/L (4-12); Aspartate Amino Transferase 28 U/L (17-59); Bilirubin,Total 0.5 mg/dL (0.2-1.3); Blood Urea Nitrogen 9 mg/dL (9-20); Calcium 8.2 mg/dL (8.4-10.2); Carbon Dioxide 34 mmol/L (22-30); Chloride 104 mmol/L (98-107); Cholesterol 157 mg/dL (0-200); Estimated Glomerular Filt Rate > 60; Glucose 91 mg/dL (65-110); HDL Direct 41 mg/dL; Potassium 3.8 mmol/L (3.4-5.0); Sodium 135 mmol/L (137-145); Triglycerides 103 mg/dL (<150)
[2024-03-15 10:16] LABS: LDL Cholesterol Direct 79 mg/dL
[2024-03-15 10:35] LABS: Vitamin D 25 Hydroxy 60.7 ng/mL
== END 2024-03-15 08:29 | disposition home or self-care (01) ==
LOC: ANHLAB 08:29
PROVIDERS: PCP Emergency Medicine; Visit Provider Emergency Medicine
DX: E78.5 Hyperlipidemia, unspecified (principal); E55.9 Vitamin D deficiency, unspecified
CPT/HCPCS: 36415; 80053; 80061; 82306

== ENCOUNTER 2024-05-03 14:19 | Outpatient (RCR) | payer OTHER, SELFPAY ==
--- NOTE | 2024-05-03 15:12 | PTOPEVDC ---
Assessment and note entered by Randi Miller, PT Thank you for referring Regan Mitchell to [facility].? An evaluation has been completed. No further treatment is needed. Evaluation/ Discharge Assessment Status Evaluation/ Discharge ICD-10 Condition Codes (PT) Weakness R53.1 Other ICD-10 Condition Codes ( T 10 spinal cord injury/paraplegia PT) Subjective Information wants to see if he can do better with transfers in /out wheelchair; currently uses the sliding board, and performs indep with car, bed, standing chair transfers has 3 wheel chairs- mobile one and one he leaves at home for standing and a shower wheel-chair have an exercise machine for arms to use in the house; bicycle with arm control and use on bike trail with warmer weather, up to 20 miles; resisted exercises with [place] flex that can be done from w/c; have automatic bicycle with stim for legs use every other day; activity: live alone; have caregiver that helps him---assist with shower chair transfer for safety and get him onto his automatic bicycle with leg stim; Reported Pain Level Pain Score 0: Self Report Assessment PT Clinical Summary Regan has the diagnosis of weakness. He is a T-10 paraplegic since 2000. Currently, he lives alone and is indep with transfers from w/c to car, bed and standing wheel chair. He is asking about his transfers, and wants to know if there is any way he can do them better. Regan performed the sliding board transfer indep with good technique. He reports doing UE exercises every day with resistance and endurance activities. Discussed with him to continue the UE exercises. He asked questions about the w/c seat height. Referred him to the wheel chair rep for the specific height question, since they are the experts in this area. Skilled PT services are not indicated for pt at this time. He is independent with his wheel chair transfers and using a safe technique. Plan of Care PT Services Indicated No
== END 2024-05-04 09:30 | disposition home or self-care (01) ==
LOC: ANHPT 14:19
PROVIDERS: PCP Emergency Medicine; Visit Provider Emergency Medicine
DX: R29.898 Other symptoms and signs involving the musculoskeletal system (principal); R53.1 Weakness
CPT/HCPCS: 97161; 97530

== ENCOUNTER 2024-07-20 11:17 | Outpatient (CLI) | payer OTHER, SELFPAY ==
--- OUTSIDE RECORDS SUMMARY | 2024-07-20 11:35 | XMS_ITS | Referral Summary ---
Author Organization [facility] Address [address] [place] [address] Care Team Providers Care Installation Tech Name Role Phone Myles Maddox MD Primary Care Provide r Encounters Date Type Department Care Team Description 07/18/2024 Orders Only [facility] Surgery [address] [place] [address] Sami Winchester NP Nephrolithiasis (Primary Dx) 07/16/2024 Orders Only [facility] - [facility] Urology [address] [facility] [address]th [place] [address] [place] [address] Sami Winchester NP 07/12/2024 Orders Only [facility] Orthopaedic Surgery [address] [facility] 12th [place] [address] [place] [address] Tahira Velazquez MD Paraplegia (HCC); Central pain syndrome 07/05/2024 Orders Only [facility] - [facility] Urology [address] [facility] [address]th [place] [address] [place] [address] Sami Winchester NP 06/28/2024 Results [facility] - [facility] Urology [address] [facility] [address]th [place] [address] [place] [address] Sami Winchester NP 06/28/2024 Orders Only [facility] ([facility]) - [facility] Urology [address] [facility] [address]th [place] [address] [place] [address] Sami Winchester NP 06/26/2024 Telephone [facility] Surgery [address] [place] [address] Gricelda Bone 06/26/2024 Orders Only [facility] Surgery [address] [place] [address] Sami Winchester NP Neurogenic bladder (Primary Dx); Urinary tract infection without hematuria, site unspecified 06/19/2024 Orders Only 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 Orthopaedic Surgery [facility] [address]th [place] [address] [place] [address] MD 06/06/2024 Orders Only [facility] Orthopaedic Surgery [address] [place] [address] [address]th [place] [address] [place] [address] MD 06/05/2024 Telephone [facility] Surgery [address] [facility] [address]th [place] [address] [place] [address] MD 05/14/2024 Orders Only [facility] Orthopaedic Surgery [facility] [address]th [place] [address] [place] [address] MD Paraplegia (HCC); Central pain syndrome 04/27/2024 9:40 AM TEAMSITE DEVELOPER Office Visit [facility] ([facility]) - [facility] Urology [address] [facility] [address]th [place] [address] [place] [address] Sami Winchester NP Intermittent self-catheterization of bladder (Primary Dx); Neurogenic bladder; Difficulty managing urinary catheter 04/25/2024 Orders Only [facility] Orthopaedic Surgery [address] [facility] [address]th [place] [address] [place] [address] MD 04/24/2024 Telephone [facility] Orthopaedic Surgery [address] [facility] [address]th [place] [address] [place] [address] MD from Last 3 Months Allergies No known active allergies Medications lidocaine (GLYDO) 2 % jelly in applicator APPLY DIRECTED. 06/10/19 11 Active menthol-zinc oxide 0.44-20.6 % ointment Apply topically 2 (two) times a day. 226 Tube 2 01/21/20 18 Active silver sulfadiazine (SSD) 1 % cream Apply topically 2 (two) times a day 50 g 11 09/13/19 19 Active miscellaneous medical supply miscIndications :Incomplete bladder emptying POSITIVETOUCH NON STERILE LARGE GLOVES ITEM #[id number] 100 each 11/06/19 Active miscellaneous medical supply miscIndications :Neurogenic bladder,Incompl ete bladder emptying PREVAIL NIGHTTIME UNDERPAD 30 X 30 ITEM # [id number] 100 each 11/06/19 Active miscellaneous medical supply miscIndications :Neurogenic bladder,Incompl ete bladder emptying MMG STIFF CLOSED SYSTEM INTERM. CATH 14 FR ITEM # [id number] 200 each 11/06/19 Active miscellaneous medical supply miscIndications :Neurogenic bladder,Incompl ete bladder emptying FREEDOM CATH COLOPLAST 35 MM EXTERNAL REF # [id number] 100 each 11/06/19 Active miscellaneous medical supply miscIndications :Neurogenic bladder,Incompl ete bladder emptying BARD LATEX DRAINAGE BAG REF # [id number] 5 each 11/06/19 Active miscellaneous medical supply miscIndications :Neurogenic bladder,Incompl ete bladder emptying COVIDIEN STEFFANIE DRAINAGE BAG 2000 ML REF # [id number] 2 each 11/06/19 Active miscellaneous medical supply miscIndications :Neurogenic bladder,Incompl ete bladder emptying WIDE BAND EXTERNAL CATH 36MM REF # [id number] 10 each 11/06/19 Active miscellaneous medical supply miscIndications :Neurogenic bladder,Incompl ete bladder emptying TENNA ULTRA WASHCLOTH 8 X 12.5 100 each 11/06/19 Active multivitamin tabletIndicatio ns:Vitamin Deficiency Prevention Take 1 tablet by mouth daily 30 tablet 02/25/20 Active hsqcfvcd-qlq-st rrous sulfate (One Daily Multi-Vit w-Mineral) 4.5 mg iron tablet Take 1 tablet by mouth daily 30 tablet 02/17/20 21 Active naloxone (NARCAN) 4 mg/actuation spray,non-aeros ol Administer 1 spray into affected nostril(s) as needed for opioid reversal or respiratory depression Call 911. Administer a single spray in one nostril. Repeat every 3 minutes as needed if no or minimal response. 1 each 07/31/19 22 Active naloxone (NARCAN) 4 mg/actuation spray,non-aeros olIndications:O piate-Induced Respiratory Depression Administer 1 spray into affected nostril(s) as needed for opioid reversal Call 911. Administer a single spray in one nostril. Repeat every 3 minutes as needed if no or minimal response. 2 each 1 02/01/20 23 Active sennosides (SENNA LAX ORAL) Take 2 tablets by mouth 03/24/20 23 Active hydrocortisone (ANUSOL-HC) 2.5 % rectal cream APPLY RECTALLY TO THE AFFECTED AREA TWICE DAILY FOR 2 WEEKS 03/30/19 24 Active surgical lubricant jelly (surgical lubricant) gel APPLY TOPICALLU DIRECTED 1445.88 g 07/11/19 24 Active Azo Cranberry Plus Probiotic 250-30-15 mg tablet TAKE 2 TABLETS BY MOUTH TWICE DAILY 120 tablet 09/26/19 24 Active trospium (SANCTURA) 20 mg tablet TAKE 3 TABLETS BY MOUTH TWICE DAILY 180 tablet 11/01/19 24 Active Tab-A-Cheryl Multivitamin w-iron 15 mg iron- 400 mcg tablet TAKE 1 TABLET BY MOUTH DAILY 30 tablet 11/30/19 24 Active ascorbic acid (ascorbic acid with raiza hips) 1,000 mg tablet TAKE 1 TABLET BY MOUTH EVERY DAY 30 tablet 11/30/19 24 Active baclofen (LIORESAL) 10 mg tablet TAKE 1 TABLET BY MOUTH FOUR TIMES DAILY AND 2 TABLETS EVERY NIGHT 180 tablet 11/30/19 24 Active Oysco 500/D 500 mg-5 mcg (200 unit) per tablet TAKE 1 TABLET BY MOUTH TWICE DAILY WITH MEALS 60 tablet 02/22/20 Active fesoterodine 8 mg tablet extended release 24 hr Take 1 tablet (8 mg total) by mouth daily 30 tablet 02/22/20 24 Active diazePAM (VALIUM) 5 mg tabletIndicatio ns:Muscle Spasm,Paraplegi a,Spinal Cord Injury Take 1 tablet (5 mg total) by mouth every 8 (eight) hours as needed for muscle spasms 90 tablet 5 02/22/20 24 Active cholecalciferol (D3-2000) 2000 unit capsule Take 1 capsule (2,000 Units total) by mouth daily 90 capsule 3 02/28/20 24 2024 Active terazosin (HYTRIN) 5 mg capsule TAKE 3 CAPSULES(15 MG) BY MOUTH EVERY NIGHT 270 capsule 3 03/22/20 Active desmopressin (DDAVP) 0.1 mg tablet TAKE 1 TABLET (0.1 MG) BY MOUTH THREE TIMES DAILY. 90 tablet 03/22/20 Active bisacodyL (DULCOLAX) 10 mg suppositoryIndi cations:constip ation Insert 1 suppository (10 mg total) into the rectum daily 90 suppository 06/07/19 25 Active senna-docusate (Stimulant Laxative Plus) 8.6-50 mg Take 2 tablets by mouth nightly 60 tablet 07/11/19 25 Active HYDROcodone-marin taminophen (NORCO) 7.5-325 mg per tabletIndicatio ns:Pain,spinal cord injury related pain Take 1 tablet by mouth daily 30 tablet 07/13/19 25 Active vibegron 75 mg tablet Take 75 mg by mouth daily 30 tablet 07/17/19 25 2025 Active senna-docusate (Stimulant Laxative Plus) 8.6-50 mg Take 2 tablets by mouth nightly 60 tablet 08/15/19 24 2024 Discontin ued(Reord er) HYDROcodone-marin taminophen (NORCO) 7.5-325 mg per tabletIndicatio ns:Pain,spinal cord injury related pain Take 1 tablet by mouth daily 30 tablet 06/13/19 25 2024 Discontin ued(Reord er) amoxicillin-cla vulanate (AUGMENTIN) 875-125 mg per tablet Take 1 tablet by mouth 2 (two) times a day for 7 days 14 tablet 06/29/19 25 2024 Discontin ued(Reord er) amoxicillin-cla vulanate (AUGMENTIN) 875-125 mg per tablet Take 1 tablet by mouth 2 (two) times a day for 7 days 14 tablet 07/06/19 25 2024 Active Problems Problem Noted Date Diagnosed Date Neurogenic bladder 04/06/2024 Neurogenic bowel 06/17/2020 Incomplete bladder emptying 02/05/2019 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 06/26/2018 Nephrolithiasis 01/30/2018 Neurogenic bladder 11/10/2017 Paraplegia, unspecified 11/08/2017 Muscle spasticity 11/08/2017 Neuropathic pain 11/08/2017 Immunizations Immunization Administration Dates Next Due Influenza, Quadrivalent, Spl it, Preservative Free, Intramuscular 12/24/2019,12/22/2018,12/18/2017,12/17 Influenza, Trivalent, Adjuva nted, Intramuscular 12/06/2016 Influenza, Trivalent, IM (MDV) 12/12/2014,2013 Influenza, Trivalent, Preser vative Free, Intramuscular 12/05/2015 Influenza, Trivalent, Split, Preservative Free, Intradermal 04/07/2012 Social History Tobacco Use Types Packs/Day Years Used Date Smoking Tobacco: Never Smokeless Tobacco: Never Tobacco Cessation:Counseling Given: Not Answered Sex and Gender Information Value Date Recorded Sex Assigned at Not on file Legal Sex Male 10:41 PM TEAMSITE DEVELOPER Gender Identity Male 03/18/2024 2:20 PM TEAMSITE DEVELOPER Sexual Orientation Straight 03/18/2024 2: 20 PM TEAMSITE DEVELOPER Last Filed Vital Signs Vital Sign Reading Time Taken Comments Blood Pressure 120/76 07/04/2023 9:23 AM CDT Pulse 87 07/04/2023 9:23 AM CDT Temperature 36.5 C (97.7 F) 06/15/2021 10:51 AM CDT Respiratory Rate 18 07/04/2023 9:23 AM CDT Oxygen Saturation - - Inhaled Oxygen Concentration - - Weight 93 kg (205 lb) 07/04/2023 9:23 AM CDT Height 172.7 cm (5' 8 ) 07/04/2023 9:23 AM CDT Body Mass Index 31.17 07/04/2023 9:23 AM CDT Plan of Treatment Not on file Procedures Procedure Name Priority Date/Time Associated Diagnosis Comments URINE CULTURE Routine 06/26/2024 1:10 PM CDT Neurogenic bladder Urinary tract infection without hematuria, site unspecified PSA SCREEN Routine 04/09/2021 10:52 AM TEAMSITE DEVELOPER Prostate cancer screening from Last 3 Months or Most Recently Relevant to Health Maintenance Results * (ABNORMAL) Urine culture Urine, bladder (06/26/2024 1:10 PM CDT) Urine culture (A) [facility] Comment: CULTURE, URINE, ROUTINE Micro Number: [id number] Test Status: Final Specimen Source: Urine Specimen Quality: Adequate Result: 10,000-49,000 CFU/mL of Enterococcus species Enterococcus sp. INT MORENA AMPICILLIN S <=2 NITROFURANTOIN S <=16 VANCOMYCIN S 1 S = Susceptible I = Intermediate R = Resistant NS = Not susceptible SDD = Susceptible Dose Dependent * = Not Tested NR = Not Reported NN = See Therapy Comments Urine, bladder 06/26/2024 1: 10 PM CDT 06/26/2024 1:11 PM CDT Sami Winchester NP LAB MICROBIOLOGY - GEN ERAL ORDERABLES Final Result [facility] [address] [place] [address] * PSA screen (04/09/2021 10:52 AM TEAMSITE DEVELOPER) PSA-Total 1.31 <=3.90 ng/mL [facility] Comment: Interpretive Data AGE SEX REFERENCE INTERVAL 0 minutes-150 years Female None 0 minutes-49 years Male None 50-59 years Male 0-3.90 60-69 years Male 0-5.40 70-79 years Male 0-6.20 80-150 years Male 0-6.20 Current interpretive data last revised 2017. Blood 04/09/2021 10:5 2 AM TEAMSITE DEVELOPER 04/09/2021 11:26 AM TEAMSITE DEVELOPER Amanda Nicholas PERMIT REVIEW ASSISTANT LAB BLOOD ORDERABLES Fi nal Result [facility] [place] [address] from Last 3 Months or Most Recently Relevant to Health Maintenance Insurance [employer] COMPENSATION GENERIC WORKERS COMPENSATION GENERIC WORKERS COMPENSATION GENERIC Care Teams Installation Tech Relationship Specialty Start Date End Date Myles Maddox MD [address] [place], [place] [id number] PCP - General 07/14/16
--- OUTSIDE RECORDS SUMMARY | 2024-07-20 11:35 | XMS_ITS | Encounter Summary ---
Author Organization [facility] Address [address] [facility] [address] [place] [address] Phone Care Team Providers Care Assembler Gold Frame Name Role Phone Myles Maddox MD Primary Care Provide r Encounter Details Date Type Department Care Team (Late st Contact Info) Description 07/16/2024 Orders Only [facility] - [facility] Urology [address] [facility] Advanced Medicine 11th [place] [address] [place] [address] Sami Winchester NP [address] [facility] [place] [address] Social History Tobacco Use Types Packs/Day Years Used Date Smoking Tobacco: Never Smokeless Tobacco: Never Sex and Gender Information Value Date Recorded Sex Assigned at Not on file Legal Sex Male 10:41 PM HOSE TESTER Gender Identity Male 03/18/2024 2:20 PM HOSE TESTER Sexual Orientation Straight 03/18/2024 2: 20 PM HOSE TESTER documented as of this encounter Ordered Prescriptions Prescription Sig Dispense Quantity Refills Last Filled Start Date End Date vibegron 75 mg tablet Take 75 mg by mouth daily 30 tablet 11 07/16/2024 07/16/2025 documented in this encounter Plan of Treatment Not on file documented as of this encounter Visit Diagnoses Not on filedocumented in this encounter Care Teams Assembler Gold Frame Relationship Specialty Start Date End Date Myles Maddox MD [address] [place] [address] PCP - General 07/14/16 documented as of this encounter
--- OUTSIDE RECORDS SUMMARY | 2024-07-20 11:35 | XMS_ITS | Clinical Summary ---
Author Organization [facility] Address [address] [place] [address] Care Team Providers Care Regional Sales Associate Name Role Phone Myles Maddox MD Primary Care Provide r Allergies No known active allergies Medications lidocaine [...] emptying POSITIVETOUCH NON STERILE LARGE GLOVES ITEM #[id number] 100 each 11/06/19 Active miscellaneous medical supply miscIndications :Neurogenic bladder,Incompl ete bladder emptying PREVAIL NIGHTTIME UNDERPAD 30 X 30 ITEM # [id number] 100 each 11/06/19 20 Active miscellaneous medical supply miscIndications :Neurogenic bladder,Incompl ete bladder emptying MMG STIFF CLOSED SYSTEM INTERM. CATH 14 FR ITEM # [id number] 200 each 11/06/19 20 Active miscellaneous medical supply miscIndications :Neurogenic bladder,Incompl ete bladder emptying FREEDOM CATH COLOPLAST 35 MM EXTERNAL REF # [id number] 100 each 11 11/06/19 20 Active miscellaneous medical supply miscIndications :Neurogenic bladder,Incompl ete bladder emptying BARD LATEX DRAINAGE BAG REF # [id number] 5 each 11/06/19 Active miscellaneous medical supply miscIndications :Neurogenic bladder,Incompl ete bladder emptying COVIDIEN STEFFANIE DRAINAGE BAG 2000 ML REF # [id number] 2 each 11/06/19 Active miscellaneous medical supply miscIndications :Neurogenic bladder,Incompl ete bladder emptying WIDE BAND EXTERNAL CATH 36MM REF # [id number] 10 each 11/06/19 Active miscellaneous medical supply miscIndications :Neurogenic bladder,Incompl ete bladder emptying TENNA ULTRA WASHCLOTH 8 X 12.5 100 each 11/06/19 Active multivitamin tabletIndicatio ns:Vitamin Deficiency Prevention Take 1 tablet by mouth daily 30 tablet 02/25/20 Active gascngkv-fyu-tp rrous sulfate (One Daily Multi-Vit w-Mineral) 4.5 mg iron tablet Take 1 tablet by mouth daily 30 tablet 02/17/20 Active naloxone (NARCAN) 4 mg/actuation spray,non-aeros ol [...] BY MOUTH TWICE DAILY 180 tablet 11/01/19 Active Tab-A-Cheryl Multivitamin w-iron 15 mg iron- 400 mcg tablet TAKE 1 TABLET BY MOUTH DAILY 30 tablet 11/30/19 Active ascorbic acid (ascorbic acid with raiza hips) 1,000 mg tablet TAKE 1 TABLET BY MOUTH EVERY DAY 30 tablet 11/30/19 Active baclofen (LIORESAL) 10 mg tablet TAKE 1 TABLET BY MOUTH FOUR TIMES DAILY AND 2 TABLETS EVERY NIGHT 180 tablet 11/30/19 Active Oysco 500/D 500 mg-5 mcg (200 unit) per tablet TAKE 1 TABLET BY MOUTH TWICE DAILY WITH MEALS 60 tablet 02/22/20 Active fesoterodine 8 mg tablet extended release 24 hr Take 1 tablet (8 mg total) by mouth daily 30 tablet 02/22/20 Active diazePAM (VALIUM) 5 mg tabletIndicatio ns:Muscle Spasm,Paraplegi a,Spinal Cord Injury Take 1 tablet (5 mg total) by mouth every 8 (eight) hours as needed for muscle spasms 90 tablet 02/22/20 Active cholecalciferol (D3-2000) 2000 unit capsule Take [...] into the rectum daily 90 suppository 06/07/19 Active senna-docusate (Stimulant Laxative Plus) 8.6-50 mg [...] 2 tablets by mouth nightly 60 tablet 11 08/15/19 24 2024 Discontin ued(Reord er) HYDROcodone-marin [...] 11/08/2017 Muscle spasticity 11/08/2017 Neuropathic pain 11/08/2017 Encounters Date Type Department Care Team Description 07/18/2024 Orders Only [facility] [address] [place] [address] Sami Winchester, ROBE Nephrolithiasis (Primary Dx) 07/16/2024 Orders Only [facility] - [facility] Urology [address] [place] [address] [facility] [address]th [place] [address] [place] [address] Sami Winchester NP 07/12/2024 Orders Only [facility] Orthopaedic Surgery [address] [place] [address] [address]th [place] [address] [place] [address] Tahira Velazquez MD Paraplegia (HCC); Central pain syndrome 07/05/2024 Orders Only [facility] - [facility] Urology [address] [facility] [address]th [place] [address] [place] [address] Sami Winchester, ROBE 06/28/2024 Results Follow-Up [facility] - [facility] Urology [address] [facility] 11th [place] [address] [place] [address] Sami Winchester, ROBE 06/28/2024 Orders Only [facility] - [facility] Urology [address] [facility] [address]th [place] [address] [place] [address] Sami Winchester, ROBE 06/26/2024 Telephone [facility] [address] [place] [address] Gricelda Bone 06/26/2024 Orders Only [facility] [address] [place] [address] Sami Winchester, ROBE Neurogenic bladder (Primary Dx); Urinary tract infection without hematuria, site unspecified 06/19/2024 Orders Only [facility] Surgery [address] [place] [address] [address] [place] [address] [place] [address] MD Paraplegia (HCC) (Primary Dx); Neuropathic pain; Muscle spasticity; 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 06/13/[address] [place] [address] [place] [address] MD 06/06/2024 Orders Only [facility] Surgery [address] [place] [address] [address] [place] [address] [place] [address] MD 06/05/2024 Telephone [facility] [address] [place] [address] [place] [address] MD 05/14/2024 Orders Only [facility] [address] [place] [address] [place] [address] MD Paraplegia (HCC); Central pain syndrome 04/27/2024 9:40 AM NYLON OPERATOR Office Visit [facility] - [facility] Urology [address] [facility] [address]th [place] [address] [place] [address] Sami Winchester NP Intermittent self-catheterization of bladder (Primary Dx); Neurogenic bladder; Difficulty managing urinary catheter 04/25/2024 Orders Only [facility] Surgery [address] [facility] [address]th [place] [address] [place] [address] MD 04/24/2024 Telephone [facility] [address] [facility] [address]th [place] [address] [place] [address] MD from Last 3 Months Immunizations Immunization Administration Dates Next Due Influenza, Quadrivalent, Spl it, Preservative Free, Intramuscular 12/24/2019,12/22/2018,12/18/2017,12/17 Influenza, Trivalent, Adjuva nted, Intramuscular 12/06/2016 Influenza, Trivalent, IM (MDV) 12/12/2014,2013 Influenza, Trivalent, Preser vative Free, Intramuscular 12/05/2015 Influenza, Trivalent, Split, Preservative Free, Intradermal 04/07/2012 Family History Medical History Relation Name Comments Obesity Mother Family history of obesity - (Added by TW Conv) Relation Name Status Comments Mother Social History Tobacco Use Types Packs/Day Years Used Date Smoking Tobacco: Never Smokeless Tobacco: Never Tobacco Cessation:Counseling Given: Not Answered Sex and Gender Information Value Date Recorded Sex Assigned at Not on file Legal Sex Male 10:41 PM NYLON OPERATOR Gender Identity Male 03/18/2024 2:20 PM NYLON OPERATOR Sexual Orientation Straight 03/18/2024 2: 20 PM NYLON OPERATOR Obstetrics History Last Filed Vital Signs Vital Sign Reading [...] 07/04/2023 9:23 AM CDT Plan of Treatment Health Maintenance Due Date Last Done Comments Colon Cancer Screening-Colonoscopy 1969 Depression Screening 1969 Hepatitis C Screening 1969 DTaP/Tdap/Td Vaccine (1 - Tdap) 1980 Hepatitis B Screening 1987 Regular Well Visit/Exam 18-64 1987 Zoster Vaccine (1 of 2) 2019 Prostate Cancer Screening-PSA 04/09/2023 04/09/2021 Influenza Vaccine (Season Ended) 2024 12/24/2019, 12/22/2018, 12/18/2017, Additional history exists Pneumococcal vaccine <65 Aged Out No longer eligible based on patient's age to complete this topic Procedures Procedure Name Priority Date/Time Associated Diagnosis Comments URINE CULTURE Routine 06/26/2024 1:10 PM CDT Neurogenic bladder Urinary tract infection without hematuria, site unspecified PSA SCREEN Routine 04/09/2021 10:52 AM NYLON OPERATOR Prostate cancer screening from Last 3 Months or Most Recently Relevant to Health Maintenance Results * (ABNORMAL) Urine culture Urine, bladder (06/26/2024 1:10 PM CDT) Urine culture (A) [facility] Comment: CULTURE, URINE, ROUTINE Micro Number: [id number] Test Status: Final Specimen Source: Urine Specimen [...] CDT 06/26/2024 1:11 PM CDT Sami Winchester PASSENGER SOLICITOR LAB MICROBIOLOGY - GEN ERAL ORDERABLES Final Result [facility] [address] [place] [address] * PSA screen (04/09/2021 10:52 AM NYLON OPERATOR) PSA-Total 1.31 <=3.90 ng/mL [facility] Comment: Interpretive Data AGE SEX REFERENCE INTERVAL 0 minutes-150 years Female None 0 minutes-49 years Male None 50-59 years Male 0-3.90 60-69 years Male 0-5.40 70-79 years Male 0-6.20 80-150 years Male 0-6.20 Current interpretive data last revised 2017. Blood 04/09/2021 10:5 2 AM NYLON OPERATOR 04/09/2021 11:26 AM NYLON OPERATOR Amanda Nicholas PASSENGER SOLICITOR LAB BLOOD ORDERABLES Fi nal Result [facility] Department [place] [address] from Last 3 Months or Most Recently Relevant to Health Maintenance Insurance COUNTRY FIN[employer] WORKERS COMPENSATION GENERIC WORKERS COMPENSATION GENERIC WORKERS COMPENSATION GENERIC Care Teams Regional Sales Associate Relationship Specialty Start Date End Date Myles Maddox MD [address] [place] [address] PCP - General 07/14/16
--- OUTSIDE RECORDS SUMMARY | 2024-07-20 11:35 | XMS_ITS | Continuity of Care Document ---
Author Organization [facility] Address [address] [facility] [address] [place] [address] Phone Care Team Providers Care Operations Supervisor Chemical Cleaning Name Role Phone Jamila Guerrier Unavailable Unavailable Advance Directives Directive Yes / No Effective Date File Name No Information Encounters Encounter Description Practice Location Reason(s) For Visit Diagnoses Date Provider Providers Copied on Encounter [facility], [address], [place], [place], [id number], [place] tel:[phone] [facility] No Information Baudilio-0 8-200 0 Chey Marino. [address] , [address], [place], [address], [place]. tel:[phone] Family History Family Member Type Diagnosis Age At Onset No Information Payers Payer name Insurance type Covered libertarian ID Authoryuria andres(s) Workers Compensation [id number] Social History Type Description Quantity Date Captured [...]
--- OUTSIDE RECORDS SUMMARY | 2024-07-20 11:35 | XMS_ITS | Clinical Summary ---
Author Organization [facility] Address [address] [place] [address] Care Team Providers Care Aquatic Habitat Biologist Name Role Phone None, Provider MD Primary Care Provider Unavaila ble Social History Tobacco Use Types Packs/Day Years Used Date Smoking Tobacco: Never Assessed Sex and Gender Information Value Date Recorded Sex Assigned at Not on file Legal Sex Male 12:31 PM CDT Gender Identity Not on file Sexual Orientation Not on file Plan of Treatment Health Maintenance Due Date Last Done Comments Colorectal Cancer Screening Colonoscopy (10 Years) 1969 Annual Physical 1972 Hepatitis C 1987 DTaP, Tdap and Td Vaccines ( 1 - Tdap) 1988 Hepatitis B Vaccines (1 of 3 - 19+ 3-dose series) 1988 Pneumococcal Vaccine: 50+ Years (1 of 1 - PCV) 2019 Zoster Vaccines (1 of 2) 2019 COVID-19 Vaccine (2023-2 5 season) 2023 04/16/2021, 06/26/2020, 05/29/2020 Meningococcal B Vaccine Aged Out No l onger eligible based on patient's age to complete this topic Meningococcal Vaccine Aged Out No lizette danielle eligible based on patient's age to complete this topic RSV Immunizations Under 20 Months Aged Out No longer eligible b ased on patient's age to complete this topic Care Teams Aquatic Habitat Biologist Relationship Specialty Start Date End Date None, Provider, PCP - General UNKNOWN PHYSICIAN SPECIALTY 06/28/22
--- OUTSIDE RECORDS SUMMARY | 2024-07-20 11:35 | XMS_ITS | Encounter Summary ---
Author Organization [facility] Address [address] [place] [address] Phone Care Team Providers Care Clean Up Supervisor Name Role Phone Myles Maddox MD Primary Care Provide r Encounter Details Date Type Department Care Team (Late st Contact Info) Description 06/28/2024 Results Follow-Up [facility] - [facility] Urology [address] [facility] Advanced Medicine 11th [place] [address] [place] [address] Sami Winchester NP [address] [facility] [place] [address] Social History Tobacco Use Types Packs/Day Years Used Date Smoking Tobacco: Never Smokeless Tobacco: Never Sex and Gender Information Value Date Recorded Sex Assigned at Not on file Legal Sex Male 10:41 PM RESPIRATORY CARE ASSISTANT Gender Identity Male 03/18/2024 2:20 PM RESPIRATORY CARE ASSISTANT Sexual Orientation Straight 03/18/2024 2: 20 PM RESPIRATORY CARE ASSISTANT documented as of this encounter Plan of Treatment Not on file documented as of this encounter Visit Diagnoses Not on filedocumented in this encounter Care Teams Clean Up Supervisor Relationship Specialty Start Date End Date Myles Maddox MD [address] [place] [address] PCP - General 07/14/16 documented as of this encounter
[2024-07-20 12:23] LABS: Alanine Aminotransferase 17 U/L (6-50); Albumin Level 3.7 g/dL (3.5-5.1); Alkaline Phosphatase 74 U/L (38-126); Anion Gap 6 mmol/L (4-12); Aspartate Amino Transferase 24 U/L (17-59); Bilirubin,Total 0.5 mg/dL (0.2-1.3); Blood Urea Nitrogen 13 mg/dL (9-20); Calcium 8.5 mg/dL (8.4-10.2); Carbon Dioxide 31 mmol/L (22-30); Chloride 102 mmol/L (98-107); Estimated Glomerular Filt Rate > 60; Glucose 103 mg/dL (65-110); Potassium 3.5 mmol/L (3.4-5.0); Sodium 139 mmol/L (137-145)
[2024-07-20 12:44] LABS: Vitamin D 25 Hydroxy 54.5 ng/mL
== END 2024-07-20 11:18 | disposition home or self-care (01) ==
LOC: ANHLAB 11:20
PROVIDERS: PCP Emergency Medicine; Visit Provider Emergency Medicine
DX: E55.9 Vitamin D deficiency, unspecified (principal); E78.5 Hyperlipidemia, unspecified
CPT/HCPCS: 36415; 80053; 82306

== ENCOUNTER 2024-08-06 13:17 | Outpatient (CLI) | payer OTHER, SELFPAY ==
--- NOTE | ~2024-08-06 | CT_ITS ---
Non-contrast CT scan of the Abdomen and Pelvis Clinical indication: Nephrolithiasis Technique: 2.5 mm axial scans were obtained through the abdomen and pelvis without intravenous or or al contrast. Dose reduction technique was used on this scan by utilizing automated exposure control a nd iterative reconstruction technique. The dose-length product (DLP) was 322.58 mGy-cm. COMPARISON: 07/12/2023 Findings: Images through the lung bases reveal no abnormalities. There is no evidence of renal or ureteral calculi. The kidneys and the ureters are nondilated. The liver, spleen, pancreas, gallbladder, and adrenals appear normal. There is no aortic aneurysm. There is no evidence of bowel obstruction. Small fat-containing umbilical hernia present. Images through the pelvis were performed. There is no evidence of ascites or lymphadenopathy. Urinary bladder unremarkable. No pelvic mass evident. Orthopedic postoperative change present in the thoraco lumbar spine and the left hip. Impression: No renal, ureteral, or bladder stone. No hydronephrosis. Small fat-containing umbilical hernia. Reviewed, dictated and finalized at [facility]. Impression: No renal, ureteral, or bladder stone. No hydronephrosis. Small fat-containing umbilical hernia.
--- OUTSIDE RECORDS SUMMARY | 2024-08-06 13:30 | XMS_ITS | Continuity of Care Document ---
Author Organization [facility] Address [address] [facility] [address] [place] [address] Phone Care Team Providers Care Manager Documentation Name Role Phone Jamila Guerrier Unavailable Unavailable Advance Directives Directive Yes / No Effective Date File Name No Information Encounters Encounter Description Practice Location Reason(s) For Visit Diagnoses Date Provider Providers Copied on Encounter [facility], [address], [place], [place], [id number], [place] tel:[phone] [facility] No Information Baudilio-0 8-200 0 Chey Marino. [address] , [address], [place], [address], [place]. tel:[phone] Family History Family Member Type Diagnosis Age At Onset No Information Payers Payer name Insurance type Covered democrat ID Authoryuria andres(s) Workers Compensation [id number] Social History Type Description Quantity Date Captured [...]
--- OUTSIDE RECORDS SUMMARY | 2024-08-06 13:30 | XMS_ITS | Encounter Summary ---
Author Organization [facility] Address [address] [place] [address] Phone Care Team Providers Care Senior Associate Name Role Phone Myles Maddox MD Primary Care Provide r Encounter Details Date Type Department Care Team (Late st Contact Info) Description 06/28/2024 Results Follow-Up [place] [facility]) - [facility] Urology [address] [facility] Advanced Medicine 11th [place] [address] [place] [address] Sami Winchester NP [address] [facility] [place] [address] Social History Tobacco Use Types Packs/Day Years Used Date Smoking Tobacco: Never Smokeless Tobacco: Never Sex and Gender Information Value Date Recorded Sex Assigned at Not on file Legal Sex Male 10:41 PM LIFE ENRICHMENT SPECIALIST Gender Identity Male 03/18/2024 2:20 PM LIFE ENRICHMENT SPECIALIST Sexual Orientation Straight 03/18/2024 2: 20 PM LIFE ENRICHMENT SPECIALIST documented as of this encounter Plan of Treatment Not on file documented as of this encounter Visit Diagnoses Not on filedocumented in this encounter Care Teams Senior Associate Relationship Specialty Start Date End Date Myles Maddox MD [address] [address] PCP - General 07/14/16 documented as of this encounter
--- OUTSIDE RECORDS SUMMARY | 2024-08-06 13:30 | XMS_ITS | Referral Summary ---
Author Organization [facility] Address [address] [place] [address] Care Team Providers Care Reconnaissance Crewmember Name Role Phone Myles Maddox MD Primary Care Provide r Encounters Date Type Department Care Team Description 07/30/2024 Documentation [facility] [place] [address] Gricelda Bone 07/25/2024 Documentation [facility] [place] [address] Gricelda Bone 07/25/2024 Orders Only [facility] [place] [address] Sami Winchester NP Nephrolithiasis (Primary Dx) 07/18/2024 Orders Only [facility] Surgery [address] [place] [address] Sami Winchester NP Nephrolithiasis (Primary Dx) 07/16/2024 Orders Only [place] [facility] ([facility]) - [facility] Urology [address] [facility] Advanced Medicine 11th [place] [address] [place] [address] Sami Winchester NP 07/12/2024 Orders Only [facility] Orthopaedic Surgery [address] [facility] Advanced Medicine 12th [place] [address] [place] [address] Thaira Velazqeuz MD Paraplegia (HCC); Central pain syndrome 07/05/2024 Orders Only [facility] - [facility] Urology [address] [facility] Advanced [facility] 11th [place] [address] [place] [address] Sami Winchester, ROBE 06/28/2024 Results Follow-Up [facility] - [facility] Urology [address] [facility] 11th [place] [address] [place] [address] Sami Winchester, ROBE 06/28/2024 Orders Only [facility] Urology [address] [facility] 11th [place] [address] [place] [address] Sami Winchester, ROBE 06/26/[address] [address] Gricelda Bone 06/26/2024 Orders Only [address] [address] Sami Winchester, ROBE Neurogenic bladder (Primary Dx); Urinary tract infection without hematuria, site unspecified 06/19/2024 Orders Only [address]th [place] [address] [place] [address] MD Paraplegia (HCC) (Primary Dx); Neuropathic pain; Muscle spasticity; 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 06/13/[address]th [place] [address] [place] [address] MD 06/06/2024 Orders Only [facility] Orthopaedic Surgery [address] [place] [address] [address]th [place] [address] [place] [address] MD 06/05/2024 Telephone [facility] Orthopaedic [address]th [place] [address] [place] [address] MD 05/14/2024 Orders Only [facility] Orthopaedic Surgery [address] [place] [address] [address]th [place] [address] [place] [address] Lindsay aWy MD Paraplegia (HCC); Central pain syndrome from Last 3 Months Allergies No known active allergies Medications lidocaine (GLYDO) 2 % jelly in applicator APPLY DIRECTED. 06/10/19 Active menthol-zinc oxide 0.44-20.6 % ointment Apply topically 2 (two) times a day. 226 Tube 2 01/21/20 Active silver sulfadiazine (SSD) 1 % cream Apply topically 2 (two) times a day 50 g 09/13/19 Active miscellaneous medical supply miscIndications :Incomplete bladder emptying POSITIVETOUCH NON STERILE LARGE GLOVES ITEM #[id number] 100 each 11/06/19 Active miscellaneous medical supply miscIndications :Neurogenic bladder,Incompl ete bladder emptying PREVAIL NIGHTTIME UNDERPAD 30 X 30 ITEM # [id number] 100 each 11/06/19 Active miscellaneous medical supply miscIndications :Neurogenic bladder,Incompl ete bladder emptying MMG STIFF CLOSED SYSTEM INTERM. CATH 14 FR ITEM # [id number] 200 each 11/06/19 Active miscellaneous medical supply miscIndications :Neurogenic bladder,Incompl ete bladder emptying FREEDOM CATH COLOPLAST 35 MM EXTERNAL REF # [id number] 100 each 11/06/19 Active miscellaneous medical supply miscIndications :Neurogenic bladder,Incompl ete bladder emptying BARD LATEX DRAINAGE BAG REF # [id number] 5 each 11/06/19 Active miscellaneous medical supply miscIndications :Neurogenic bladder,Incompl ete bladder emptying COVIDIEN STEFFANIE DRAINAGE BAG 2000 ML REF # [id number] 2 each 11/06/19 Active miscellaneous medical supply miscIndications :Neurogenic bladder,Incompl ete bladder emptying WIDE BAND EXTERNAL CATH 36MM REF # [id number] 10 each 11/06/19 Active miscellaneous medical supply miscIndications :Neurogenic bladder,Incompl ete bladder emptying TENNA ULTRA WASHCLOTH 8 X 12.5 100 each 11/06/19 Active multivitamin tabletIndicatio ns:Vitamin Deficiency Prevention Take 1 tablet by mouth daily 30 tablet 02/25/20 Active rhrvkwml-zdb-fc rrous sulfate (One Daily Multi-Vit w-Mineral) 4.5 mg iron tablet Take 1 tablet by mouth daily 30 tablet 11 02/17/20 21 Active naloxone (NARCAN) 4 mg/actuation spray,non-aeros ol Administer 1 spray into affected nostril(s) as needed for opioid reversal or respiratory depression Call 911. Administer a single spray in one nostril. Repeat every 3 minutes as needed if no or minimal response. 1 each 3 07/31/19 22 Active naloxone (NARCAN) 4 mg/actuation [...] TWICE DAILY WITH MEALS 60 tablet 02/22/20 24 Active fesoterodine 8 mg tablet extended release [...] MOUTH EVERY NIGHT 270 capsule 3 03/22/20 24 Active desmopressin (DDAVP) 0.1 mg tablet TAKE 1 TABLET (0.1 MG) BY MOUTH THREE TIMES DAILY. 90 tablet 11 03/22/20 24 Active bisacodyL (DULCOLAX) 10 mg suppositoryIndi cations:constip ation Insert 1 suppository (10 mg total) into the rectum daily 90 suppository 11 06/07/19 25 Active senna-docusate (Stimulant Laxative Plus) 8.6-50 mg Take 2 tablets by mouth nightly 60 tablet 11 07/11/19 25 Active HYDROcodone-marin taminophen (NORCO) 7.5-325 [...] on file Legal Sex Male 10:41 PM CERTIFIED PHARMACY TECHNICIAN Gender Identity Male 03/18/2024 2:20 PM CERTIFIED PHARMACY TECHNICIAN Sexual Orientation Straight 03/18/2024 2: 20 PM CERTIFIED PHARMACY TECHNICIAN Last Filed Vital Signs Vital Sign Reading [...] unspecified PSA SCREEN Routine 04/09/2021 10:52 AM CERTIFIED PHARMACY TECHNICIAN Prostate cancer screening from Last 3 Months or Most Recently Relevant to Health Maintenance Results * (ABNORMAL) Urine culture Urine, bladder (06/26/2024 1:10 PM CDT) Urine culture (A) [employer] juan Zavaleta Comment: CULTURE, URINE, ROUTINE Micro Number: [id number] Test Status: Final Specimen Source: Urine Specimen [...] CDT 06/26/2024 1:11 PM CDT Sami Winchester TECHNOLOGY SALES SPECIALIST LAB MICROBIOLOGY - GEN ERAL ORDERABLES Final Result [facility] [address] [place] [address] * PSA screen (04/09/2021 10:52 AM CERTIFIED PHARMACY TECHNICIAN) PSA-Total 1.31 <=3.90 ng/mL [facility] Comment: Interpretive Data AGE SEX REFERENCE INTERVAL 0 minutes-150 years Female None 0 minutes-49 years Male None 50-59 years Male 0-3.90 60-69 years Male 0-5.40 70-79 years Male 0-6.20 80-150 years Male 0-6.20 Current interpretive data last revised 2017. Blood 04/09/2021 10:5 2 AM CERTIFIED PHARMACY TECHNICIAN 04/09/2021 11:26 AM CERTIFIED PHARMACY TECHNICIAN Amanda Nicholas TECHNOLOGY SALES SPECIALIST LAB BLOOD ORDERABLES Fi nal Result [facility] [place] [address] from Last 3 Months or Most Recently Relevant to Health Maintenance Insurance COUNTRY FINANCIAL WORKERS COMPENSATION GENERIC WORKERS COMPENSATION GENERIC WORKERS COMPENSATION GENERIC Care Teams Reconnaissance Crewmember Relationship Specialty Start Date End Date Myles Maddox MD [address] [address] PCP - General 07/14/16
--- OUTSIDE RECORDS SUMMARY | 2024-08-06 13:30 | XMS_ITS | Clinical Summary ---
Author Organization [facility] Address [address] [place] [address] Care Team Providers Care Corporate Communications Specialist Name Role Phone None, Provider MD Primary [...] age to complete this topic Care Teams Corporate Communications Specialist Relationship Specialty Start Date End Date None, Provider, PCP - General UNKNOWN PHYSICIAN SPECIALTY 06/28/22
--- OUTSIDE RECORDS SUMMARY | 2024-08-06 13:30 | XMS_ITS | Clinical Summary ---
Author Organization [facility] Address [address] [place] [address] Care Team Providers Care Kiln Worker Name Role Phone Myles Maddox MD Primary [...] emptying POSITIVETOUCH NON STERILE LARGE GLOVES ITEM #[id number] 100 each 11/06/19 Active miscellaneous medical supply miscIndications :Neurogenic bladder,Incompl ete bladder emptying PREVAIL NIGHTTIME UNDERPAD 30 X 30 ITEM # [id number] 100 each 11/06/19 20 Active miscellaneous medical supply miscIndications :Neurogenic bladder,Incompl ete bladder emptying MMG STIFF CLOSED SYSTEM INTERM. CATH 14 FR ITEM # [id number] 200 each 11/06/19 20 Active miscellaneous medical supply miscIndications :Neurogenic bladder,Incompl ete bladder emptying FREEDOM CATH COLOPLAST 35 MM EXTERNAL REF # [id number] 100 each 11 11/06/19 20 Active miscellaneous medical supply miscIndications :Neurogenic bladder,Incompl ete bladder emptying BARD LATEX DRAINAGE BAG REF # [id number] 5 each 11/06/19 Active miscellaneous medical supply miscIndications :Neurogenic bladder,Incompl ete bladder emptying COVIDIEN STEFFANIE DRAINAGE BAG 2000 ML REF # [id number] 2 each 11/06/19 Active miscellaneous medical supply miscIndications :Neurogenic bladder,Incompl ete bladder emptying WIDE BAND EXTERNAL CATH 36MM REF # [id number] 10 each 11/06/19 Active miscellaneous medical supply miscIndications :Neurogenic bladder,Incompl ete bladder emptying TENNA ULTRA WASHCLOTH 8 X 12.5 100 each 11/06/19 Active multivitamin tabletIndicatio ns:Vitamin Deficiency Prevention Take 1 tablet by mouth daily 30 tablet 02/25/20 Active znyiykek-awf-ki rrous sulfate (One Daily Multi-Vit w-Mineral) 4.5 [...] Type Department Care Team Description 07/30/2024 Documentation [facility] Surgery [address] [place] [address] Gricelda Bone 07/25/2024 Documentation [facility] Surgery [address] [place] [address] Gricelda Bone 07/25/2024 Orders Only [facility] Surgery [address] [place] [address] Sami Winchester NP Nephrolithiasis (Primary Dx) 07/18/2024 Orders Only [facility] Surgery [address] [place] [address] Sami Winchester NP Nephrolithiasis (Primary Dx) 07/16/2024 Orders Only [facility] Advanced Medicine ([facility]) - [facility] Urology [address] [place] [address] Advanced Medicine [address]th [place] [address] [place] [address] Sami Winchester NP 07/12/2024 Orders Only [facility] Orthopaedic Surgery [address] [place] [address] Advanced Medicine 12th [place] [address] [place] [address] Tahira Velazquez MD Paraplegia (HCC); Central pain syndrome 07/05/2024 Orders Only [facility] Advanced [facility] ([facility]) - [facility] Urology [address] [facility] 11th [place] [address] [place] [address] Sami Winchester, ROBE 06/28/2024 Results Follow-Up [facility] Advanced [facility] ([facility]) [facility] Urology [address] [facility] 11th [place] [address] [place] [address] Sami Winchester, ROBE 06/28/2024 Orders Only [facility] Urology [address] [place] [address] [place] [address] Sami Winchester, ROBE 06/26/2024 Telephone [facility] Surgery [address] [place] [address] Gricelda Bone 06/26/2024 Orders Only [facility] Surgery [address] [place] [address] Sami Winchester NP Neurogenic bladder (Primary Dx); Urinary tract infection without hematuria, site unspecified 06/19/2024 Orders Only [facility] Orthopaedic Surgery [address] [place] [address] [address]th [place] [address] [place] [address] MD Paraplegia (HCC) (Primary Dx); Neuropathic pain; Muscle spasticity; 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 12th [place] [address] [place] [address] MD 06/06/2024 Orders Only [facility] Orthopaedic Surgery [address] [place] [address] [address]th [place] [address] [place] [address] MD 06/05/2024 Telephone [facility] Orthopaedic Surgery [address] [place] [address] [address]th [place] [address] [place] [address] MD 05/14/2024 Orders Only [facility] Orthopaedic Surgery [address] [facility] Advanced [facility] 12th [place] [address] [place] [address] MD Paraplegia (HCC); Central pain syndrome from Last 3 Months Immunizations Immunization Administration [...] on file Legal Sex Male 10:41 PM MARKETING EFFECTIVENESS MANAGER Gender Identity Male 03/18/2024 2:20 PM MARKETING EFFECTIVENESS MANAGER Sexual Orientation Straight 03/18/2024 2: 20 PM MARKETING EFFECTIVENESS MANAGER Obstetrics History Last Filed Vital Signs Vital [...] unspecified PSA SCREEN Routine 04/09/2021 10:52 AM MARKETING EFFECTIVENESS MANAGER Prostate cancer screening from Last 3 Months or Most Recently Relevant to Health Maintenance Results * (ABNORMAL) Urine culture Urine, bladder (06/26/2024 1:10 PM CDT) Urine culture (A) [employer] [facility] Comment: CULTURE, URINE, ROUTINE Micro Number: [id number] Test Status: Final Specimen Source: Urine Specimen Quality: Adequate Result: 10,000-49,000 CFU/mL of Enterococcus species Enterococcus sp. INT MOERNA AMPICILLIN S <=2 NITROFURANTOIN S <=16 VANCOMYCIN S 1 S = Susceptible I = Intermediate R = Resistant NS = Not susceptible SDD = Susceptible Dose Dependent * = Not Tested NR = Not Reported NN = See Therapy Comments Urine, bladder 06/26/2024 1: 10 PM CDT 06/26/2024 1:11 PM CDT us Sami Winchester NP LAB MICROBIOLOGY - GEN ERAL ORDERABLES Final Result [facility] [address] [place] [address] * PSA screen (04/09/2021 10:52 AM MARKETING EFFECTIVENESS MANAGER) PSA-Total 1.31 <=3.90 ng/mL [facility]ST[facility] Comment: Interpretive Data AGE SEX REFERENCE INTERVAL 0 minutes-150 years Female None 0 minutes-49 years Male None 50-59 years Male 0-3.90 60-69 years Male 0-5.40 70-79 years Male 0-6.20 80-150 years Male 0-6.20 Current interpretive data last revised 2017. Blood 04/09/2021 10:5 2 AM MARKETING EFFECTIVENESS MANAGER 04/09/2021 11:26 AM MARKETING EFFECTIVENESS MANAGER Amanda Nicholas NP LAB BLOOD ORDERABLES nal Result [facility] Department [place] [address] from Last 3 Months or Most Recently Relevant to Health Maintenance Insurance COUNTRY FINANCIAL WORKERS COMPENSATION GENERIC Member Subscriber Plan / Payer (Ef fective 2022-Present) Name:Nena Abreu Relation to Subscriber:Self Name:Nena Abreu Payer ID:[id number] Group ID:Not on file Type:WORKERS COMPENSATION Address: [place] [id number] WORKERS COMPENSATION GENERIC WORKERS COMPENSATION GENERIC Care Teams Kiln Worker Relationship Specialty Start Date End Date Myles Maddox MD [address] [place] [address] (work) PCP - General 07/14/16
== END 2024-08-06 13:18 | disposition home or self-care (01) ==
PROVIDERS: PCP Emergency Medicine
DX: K42.9 Umbilical hernia without obstruction or gangrene (principal); N20.0 Calculus of kidney
CPT/HCPCS: 74176

== ENCOUNTER 2024-09-05 13:55 | Outpatient (CLI) | payer OTHER, SELFPAY ==
--- NOTE | ~2024-09-05 | CT_ITS ---
CT of the Abdomen and Pelvis: Indication: Abdominal pain Technique: 2.5 mm axial scans were obtained through the abdomen and pelvis following intravenous adm inistration of 100 cc of Omnipaque 350. Dose reduction technique was used on this scan by utilizing a utomated exposure control and iterative reconstruction technique. The dose-length product (DLP) was 8 82.65 mGy-cm. COMPARISON: 08/06/2024 Findings: Scans through the lung bases are unremarkable. The liver, spleen, pancreas, gallbladder, adrenals and kidneys are within normal limits. No evidence of aortic aneurysm. No lymphadenopathy. No bowel obstruction or bowel wall thickening. There is no evidence to suggest acute appendicitis. Sm all fat-containing umbilical hernia present. Images through the pelvis were performed. Urinary bladder unremarkable. No pelvic mass seen. No ascit es. Extensive thoracic spinal fixation hardware present. Impression: No acute abnormality. Small fat-containing umbilical hernia. Reviewed, dictated and finalized at [facility]. Impression: No acute abnormality. Small fat-containing umbilical hernia.
--- OUTSIDE RECORDS SUMMARY | 2024-09-05 16:50 | XMS_ITS | Clinical Summary ---
Author Organization [facility] Address [address] [place] [address] Care Team Providers Care Ribbon Inker Name Role Phone Myles Maddox MD Primary [...] emptying POSITIVETOUCH NON STERILE LARGE GLOVES ITEM #[id number] 100 each 11/06/19 Active miscellaneous medical supply miscIndications :Neurogenic bladder,Incompl ete bladder emptying PREVAIL NIGHTTIME UNDERPAD 30 X 30 ITEM # [id number] 100 each 11/06/19 20 Active miscellaneous medical supply miscIndications :Neurogenic bladder,Incompl ete bladder emptying MMG STIFF CLOSED SYSTEM INTERM. CATH 14 FR ITEM # [id number] 200 each 11/06/19 20 Active miscellaneous medical supply miscIndications :Neurogenic bladder,Incompl ete bladder emptying FREEDOM CATH COLOPLAST 35 MM EXTERNAL REF # [id number] 100 each 11 11/06/19 20 Active miscellaneous medical supply miscIndications :Neurogenic bladder,Incompl ete bladder emptying BARD LATEX DRAINAGE BAG REF # [id number] 5 each 11/06/19 Active miscellaneous medical supply miscIndications :Neurogenic bladder,Incompl ete bladder emptying COVIDIEN STEFFANIE DRAINAGE BAG 2000 ML REF # [id number] 2 each 11/06/19 Active miscellaneous medical supply miscIndications :Neurogenic bladder,Incompl ete bladder emptying WIDE BAND EXTERNAL CATH 36MM REF # [id number] 10 each 11/06/19 Active miscellaneous medical supply miscIndications :Neurogenic bladder,Incompl ete bladder emptying TENNA ULTRA WASHCLOTH 8 X 12.5 100 each 11/06/19 Active multivitamin tabletIndicatio ns:Vitamin Deficiency Prevention Take 1 tablet by mouth daily 30 tablet 02/25/20 Active vsrdeuap-dup-fk rrous sulfate (One Daily Multi-Vit w-Mineral) 4.5 [...] mouth daily 30 tablet 02/22/20 24 Active cholecalciferol (D3-2000) 2000 unit capsule Take 1 capsule (2,000 Units total) by mouth daily 90 capsule 3 02/28/20 24 025 Active terazosin (HYTRIN) 5 mg capsule TAKE 3 CAPSULES(15 MG) BY MOUTH EVERY NIGHT 270 capsule 3 03/22/20 24 Active desmopressin (DDAVP) 0.1 mg tablet TAKE 1 TABLET (0.1 MG) BY MOUTH THREE TIMES DAILY. 90 tablet 03/22/20 24 Active bisacodyL (DULCOLAX) 10 mg suppositoryIndi cations:constip ation Insert 1 suppository (10 mg total) into the rectum daily 90 suppository 06/07/19 25 Active senna-docusate (Stimulant Laxative Plus) 8.6-50 mg Take 2 tablets by mouth nightly 60 tablet 07/11/19 25 Active vibegron 75 mg tablet Take 75 mg by mouth daily 30 tablet 07/17/19 25 026 Active diazePAM (VALIUM) 5 mg tabletIndicatio ns:Muscle Spasm,Paraplegi a,Spinal Cord Injury Take 1 tablet (5 mg total) by mouth every 8 (eight) hours as needed for muscle spasms 90 tablet 5 08/07/19 25 Active HYDROcodone-marin taminophen (NORCO) 7.5-325 mg per tabletIndicatio ns: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,Pain,spi nal cord injury related pain Take 1 tablet by mouth daily 30 tablet 09/04/19 25 Active HYDROcodone-marin taminophen (NORCO) 7.5-325 mg per tabletIndicatio ns: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,Pain,spi nal cord injury related pain Take 1 tablet by mouth daily 30 tablet 08/07/19 25 025 Omega david(Reo rder) Active Problems Problem Noted Date Diagnosed Date Neurogenic bladder 04/06/2024 Neurogenic bowel 06/17/2020 Incomplete bladder emptying 02/05/2019 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 06/26/2018 Nephrolithiasis 01/30/2018 Neurogenic bladder 11/10/2017 Paraplegia, unspecified 11/08/2017 Muscle spasticity 11/08/2017 Neuropathic pain 11/08/2017 Encounters Date Type Department Care Team Description 08/08/2024 Orders Only [facility] URO SURGERY Sami Winchester NP 08/08/2024 Documentation [facility] Surgery [address] [place] [address] Gricelda Bone 08/06/2024 Orders Only [facility] Orthopaedic Surgery [address] [place] [address] 12th [place] [address] [place] [address] MD Paraplegia (HCC); 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 Documentation [facility] Surgery [address] [place] [address] Gricelda Bone 07/25/2024 Documentation [facility] Surgery [address] [place] [address] Gricelda Bone 07/25/2024 Orders Only [facility] Surgery [address] [place] [address] Sami Winchester NP Nephrolithiasis (Primary Dx) 07/18/2024 Orders Only [facility] Surgery [address] [place] [address] Sami Winchester NP Nephrolithiasis (Primary Dx) 07/16/2024 Orders Only [facility] - [facility] Urology [address] [place] [address] 11th [place] [address] [place] [address] Sami Winchester NP 07/12/2024 Orders Only [facility] Orthopaedic Surgery [address] [place] [address] 12th [place] [address] [place] [address] Tahira Velazquez MD Paraplegia (HCC); Central pain syndrome 07/05/2024 Orders Only [facility]) [facility] Urology [address] [facility] 11th [place] [address] [place] [address] Sami Winchester, ROBE 06/28/2024 Results Follow-Up [facility]) - [facility] Urology [address] [facility] 11th [place] [address] [place] [address] Sami Winchester, ROBE Urine culture Urine, bladder 06/28/2024 Orders Only [facility] Urology [address] [place] [address] [place] [address] Sami Winchester, ROBE 06/26/2024 Telephone [facility] Surgery [address] [place] [address] Gricelda Bone 06/26/2024 Orders Only [facility] Surgery [address] [place] [address] Sami Winchester, ROBE Neurogenic bladder (Primary Dx); Urinary tract infection without hematuria, site unspecified 06/19/2024 Orders Only [facility] Orthopaedic Surgery [address] [place] [address] [place] [address] [place] [address] MD Paraplegia (HCC) (Primary Dx); Neuropathic pain; Muscle spasticity; 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 06/13/2024 Telephone [facility] Orthopaedic Surgery [facility] [facility] 12th [place] [address] [place] [address] MD 06/06/2024 Orders Only [facility] Orthopaedic Surgery [address] [place] [address] 12th [place] [address] [place] [address] MD 06/05/2024 Telephone [facility] Orthopaedic Surgery [address] [place] [address] 12th [place] [address] [place] [address] MD from Last 3 Months [...] on file Legal Sex Male 10:41 PM LUMBER PRESS OPERATOR Gender Identity Male 03/18/2024 2:20 PM LUMBER PRESS OPERATOR Sexual Orientation Straight 03/18/2024 2: 20 PM LUMBER PRESS OPERATOR Obstetrics History Last Filed Vital Signs [...] 9:23 AM CDT Height 172.7 cm (5' 8) 07/04/2023 9:23 AM CDT Body Mass Index [...] Procedure Name Priority Date/Time Associated Diagnosis Comments SCAN - RADIOLOGY/IMAGING 08/08/2024 URINE CULTURE Routine 06/26/2024 1:10 PM CDT Neurogenic bladder Urinary tract infection without hematuria, site unspecified PSA SCREEN Routine 04/09/2021 10:52 AM LUMBER PRESS OPERATOR Prostate cancer screening from Last 3 Months or Most Recently Relevant to Health Maintenance Results * SCAN - RADIOLOGY/IMAGING (08/08/2024) Anatomical Region Laterality Modality Other Sami Winchester NP Final Result * (ABNORMAL) Urine culture Urine, bladder (06/26/2024 1:10 PM CDT) Urine culture (A) [employer] Zaval[facility] Comment: CULTURE, URINE, ROUTINE Micro Number: [id number] Test Status: Final Specimen Source: Urine Specimen [...] MICROBIOLOGY - GEN ERAL ORDERABLES Final Result [facility] [address] [place] [address] * PSA screen (04/09/2021 10:52 AM LUMBER PRESS OPERATOR) PSA-Total 1.31 <=3.90 ng/mL [facility] Comment: Interpretive Data AGE SEX REFERENCE INTERVAL 0 minutes-150 years Female None 0 minutes-49 years Male None 50-59 years Male 0-3.90 60-69 years Male 0-5.40 70-79 years Male 0-6.20 80-150 years Male 0-6.20 Current interpretive data last revised 2017. Blood 04/09/2021 10:5 2 AM LUMBER PRESS OPERATOR 04/09/2021 11:26 AM LUMBER PRESS OPERATOR us Amanda Nicholas NP LAB BLOOD ORDERABLES Fi nal Result [facility] Department [place] [address] from Last 3 Months or Most Recently Relevant to Health Maintenance Insurance COUNTRY FINANCIAL WORKERS COMPENSATION GENERIC Member Subscriber Plan / Payer (Ef fective 2022-Present) Name:Nena Abreu Relation to Subscriber:Self Name:Nena Abreu Payer ID:[id number] Group ID:Not on file Type:WORKERS COMPENSATION Address: [place] [id number] WORKERS COMPENSATION GENERIC WORKERS COMPENSATION GENERIC Care Teams Ribbon Inker Relationship Specialty Start Date End Date Myles Maddox MD [address] [place] [address] PCP - General 07/14/16
--- OUTSIDE RECORDS SUMMARY | 2024-09-05 16:50 | XMS_ITS | Continuity of Care Document ---
Author Organization [facility] Address [address] [place] [address] Phone Care Team Providers Care Foam Cutting Supervisor Name Role Phone Jamila Guerrier Unavailable Unavailable Advance Directives Directive Yes / No Effective Date File Name No Information Encounters Encounter Description Practice Location Reason(s) For Visit Diagnoses Date Provider Providers Copied on Encounter [facility], [address], [place], [place], [id number], [place] tel:[phone] [facility] No Information Baudilio-0 [phone] 0 Chey Marino. [address] , [address], [place], [address], [place]. tel:[phone] Family History Family Member Type Diagnosis Age At Onset No Information Payers Payer name Insurance type Covered green party ID Authoryuria andres(s) Workers Compensation [id number] Social History Type Description Quantity Date Captured [...]
--- OUTSIDE RECORDS SUMMARY | 2024-09-05 16:50 | XMS_ITS | Referral Summary ---
Author Organization [facility] Address [address] [place] [address] Care Team Providers Care Software Reliability Engineer Name Role Phone Myles Maddox MD Primary Care Provide r Encounters Date Type Department Care Team Description 08/08/2024 Orders Only [facility] URO SURGERY Sami Winchester NP 08/08/2024 Documentation [facility] Surgery [address] [place] [address] Gricelda Bone 08/06/2024 Orders Only [facility] Orthopaedic Surgery [address] [facility] [address]th [place] [address] [place] [address] MD Paraplegia (HCC); 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 ([facility]) - [facility] Urology [address] [facility] 11th [place] [address] [place] [address] Sami Winchester, ROBE 07/12/2024 Orders Only [facility] Orthopaedic Surgery [address] [place] [address] [address]th [place] [address] [place] [address] Tahira Velazquez MD Paraplegia (HCC); Central pain syndrome 07/05/2024 Orders Only [facility]) [facility] Urology [address] [place], [place] [address] [place] [address] [place] [address] Sami Winchester, ROBE 06/28/2024 Results Follow-Up [facility] Urology [address] [place], [place] [address] [place] [address] [place] [address] Sami Winchester NP Urine culture Urine, bladder 06/28/2024 Orders Only [facility] Urology [address] [place], [place] [address] [place] [address] [place] [address] Sami Winchester NP 06/26/2024 Telephone [facility] Surgery [address] [place] [address] Gricelda Bone 06/26/2024 Orders Only [facility] Surgery [address] [place] [address] Sami Winchester, ROBE Neurogenic bladder (Primary Dx); Urinary tract infection without hematuria, site unspecified 06/19/2024 Orders Only [facility] Orthopaedic Surgery [address] [place] [address] [place] [address] [place] [address] MD Paraplegia (HCC) (Primary Dx); Neuropathic pain; Muscle spasticity; 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 06/13/2024 Telephone [facility] Orthopaedic Surgery [address] [place] [address] [address]th [place] [address] [place] [address] MD 06/06/2024 Orders Only [facility] Orthopaedic Surgery [address] [place] [address] [address]th [place] [address] [place] [address] MD 06/05/2024 Telephone [facility] Orthopaedic Surgery [facility] [address]th [place] [address] [place] [address] MD from Last 3 Months Allergies No known active allergies Medications lidocaine (GLYDO) 2 % jelly in applicator APPLY DIRECTED. 06/10/19 11 Active menthol-zinc oxide 0.44-20.6 % ointment Apply topically 2 (two) times a day. 226 Tube 2 01/21/20 Active silver sulfadiazine (SSD) 1 % cream Apply topically 2 (two) times a day 50 g 11 09/13/19 Active miscellaneous medical supply miscIndications :Incomplete bladder emptying POSITIVETOUCH NON STERILE LARGE GLOVES ITEM #[id number] 100 each 11/06/19 Active miscellaneous medical supply miscIndications :Neurogenic bladder,Incompl ete bladder emptying PREVAIL NIGHTTIME UNDERPAD 30 X 30 ITEM # [id number] 100 each 11/06/19 Active miscellaneous medical supply miscIndications :Neurogenic bladder,Incompl ete bladder emptying MMG STIFF CLOSED SYSTEM INTERM. CATH 14 FR ITEM # [id number] 200 each 11/06/19 Active miscellaneous medical supply miscIndications :Neurogenic bladder,Incompl ete bladder emptying FREEDOM CATH COLOPLAST 35 MM EXTERNAL REF # [id number] 100 each 11/06/19 Active miscellaneous medical supply miscIndications :Neurogenic bladder,Incompl ete bladder emptying BARD LATEX DRAINAGE BAG REF # [id number] 5 each 11/06/19 Active miscellaneous medical supply miscIndications :Neurogenic bladder,Incompl ete bladder emptying COVIDIEN STEFFANIE DRAINAGE BAG 2000 ML REF # [id number] 2 each 11/06/19 Active miscellaneous medical supply miscIndications :Neurogenic bladder,Incompl ete bladder emptying WIDE BAND EXTERNAL CATH 36MM REF # [id number] 10 each 11/06/19 Active miscellaneous medical supply miscIndications :Neurogenic bladder,Incompl ete bladder emptying TENNA ULTRA WASHCLOTH 8 X 12.5 100 each 11/06/19 Active multivitamin tabletIndicatio ns:Vitamin Deficiency Prevention Take 1 tablet by mouth daily 30 tablet 02/25/20 Active wpfsmwix-ayj-fk rrous sulfate (One Daily Multi-Vit w-Mineral) 4.5 [...] nightly 60 tablet 11 07/11/19 25 Active vibegron 75 mg tablet Take 75 mg by mouth daily 30 tablet 11 07/17/19 25 026 Active diazePAM (VALIUM) 5 [...] mouth daily 30 tablet 08/07/19 25 025 Disconti nued(Reo rder) Active Problems Problem Noted Date Diagnosed [...] on file Legal Sex Male 10:41 PM STRAIGHTEDGE MACHINE OPERATOR HELPER Gender Identity Male 03/18/2024 2:20 PM STRAIGHTEDGE MACHINE OPERATOR HELPER Sexual Orientation Straight 03/18/2024 2: 20 PM STRAIGHTEDGE MACHINE OPERATOR HELPER Last Filed Vital Signs Vital Sign Reading [...] unspecified PSA SCREEN Routine 04/09/2021 10:52 AM STRAIGHTEDGE MACHINE OPERATOR HELPER Prostate cancer screening from Last 3 Months or Most Recently Relevant to Health Maintenance Results * SCAN - RADIOLOGY/IMAGING (08/08/2024) Anatomical Region Laterality Modality Other Sami Winchester NP Final Result * (ABNORMAL) Urine culture Urine, bladder (06/26/2024 1:10 PM CDT) Urine culture (A) [employer] [facility] Zavaleta Comment: CULTURE, URINE, ROUTINE Micro Number: [id number] Test Status: Final Specimen Source: Urine Specimen [...] MICROBIOLOGY - GEN ERAL ORDERABLES Final Result [facility] [address] [place] [address] * PSA screen (04/09/2021 10:52 AM STRAIGHTEDGE MACHINE OPERATOR HELPER) PSA-Total 1.31 <=3.90 ng/mL [facility] Comment: Interpretive Data AGE SEX REFERENCE INTERVAL 0 minutes-150 years Female None 0 minutes-49 years Male None 50-59 years Male 0-3.90 60-69 years Male 0-5.40 70-79 years Male 0-6.20 80-150 years Male 0-6.20 Current interpretive data last revised 2017. Blood 04/09/2021 10:5 2 AM STRAIGHTEDGE MACHINE OPERATOR HELPER 04/09/2021 11:26 AM STRAIGHTEDGE MACHINE OPERATOR HELPER Amanda Nicholas SHOE REPAIRMAN LAB BLOOD ORDERABLES Fi nal Result [facility] Department [place] [address] from Last 3 Months or Most Recently Relevant to Health Maintenance Insurance COUNTRY FINANCIAL WORKERS COMPENSATION GENERIC WORKERS COMPENSATION GENERIC WORKERS COMPENSATION GENERIC Care Teams Software Reliability Engineer Relationship Specialty Start Date End Date Myles Maddox MD [address] [place] [address] PCP - General 07/14/16
== END 2024-09-05 13:56 | disposition home or self-care (01) ==
PROVIDERS: PCP Emergency Medicine; Visit Provider Emergency Medicine
DX: K42.9 Umbilical hernia without obstruction or gangrene (principal)
CPT/HCPCS: 74177; Q9967

== ENCOUNTER 2024-12-13 08:39 | Outpatient (CLI) | payer OTHER, SELFPAY ==
--- OUTSIDE RECORDS SUMMARY | 1999-09-03 05:45 | XMS_ITS | Continuity of Care Document ---
Author Organization [facility] Address [address] [place] [address] Phone Care Team Providers Care Reconnaissance Crewmember Name Role Phone Jamila Guerrier Unavailable Unavailable Advance Directives Directive Yes / No Effective Date File Name No Information Encounters Encounter Description Practice Location Reason(s) For Visit Diagnoses Date Provider Providers Copied on Encounter [facility], [address], [place], [place], [id number], [place] tel:[phone] [facility] No Information Baudilio-0 8-200 0 Chey Marino. [address] , [address], [place], [address], [place]. tel:[phone] Family History Family Member Type Diagnosis Age At Onset No Information Payers Payer name Insurance type Covered green party ID Authoryuria andres(s) Workers Compensation [id number] Social History Type Description Quantity Date Captured [...]
--- OUTSIDE RECORDS SUMMARY | 2024-12-13 09:00 | XMS_ITS | Encounter Summary ---
Author Organization [facility] Address [address] [place] [address] Care Team Providers Care Global Marketing Coordinator Name Role Phone Myles Maddox MD Primary Care Provide r Encounter Details Date Type Department Care Team (Late st Contact Info) Description 11/13/2024 Telephone [facility] [address] [place] [address] Erma Ivy, RT Social History Tobacco Use Types Packs/Day Years Used Date Smoking Tobacco: Never Smokeless Tobacco: Never Sex and Gender Information Value Date Recorded Sex Assigned at Not on file Legal Sex Male 10:41 PM CASEWORKER INTAKE Gender Identity Male 03/18/2024 2:20 PM CASEWORKER INTAKE Sexual Orientation Straight 03/18/2024 2: 20 PM CASEWORKER INTAKE documented as of this encounter Plan of Treatment Not on file documented as of this encounter Visit Diagnoses Not on filedocumented in this encounter Care Teams Global Marketing Coordinator Relationship Specialty Start Date End Date Myles Maddox MD [address] [place] [address] PCP - General 07/14/16 documented as of this encounter
--- OUTSIDE RECORDS SUMMARY | 2024-12-13 09:00 | XMS_ITS | Clinical Summary ---
Author Organization [facility] Address [address] [place] [address] Care Team Providers Care Hoop Expander Name Role Phone Myles Maddox MD Primary [...] emptying POSITIVETOUCH NON STERILE LARGE GLOVES ITEM #[id number] 100 each 11/06/19 Active miscellaneous medical supply miscIndications :Neurogenic bladder,Incompl ete bladder emptying PREVAIL NIGHTTIME UNDERPAD 30 X 30 ITEM # [id number] 100 each 11/06/19 20 Active miscellaneous medical supply miscIndications :Neurogenic bladder,Incompl ete bladder emptying MMG STIFF CLOSED SYSTEM INTERM. CATH 14 FR ITEM # [id number] 200 each 11/06/19 20 Active miscellaneous medical supply miscIndications :Neurogenic bladder,Incompl ete bladder emptying FREEDOM CATH COLOPLAST 35 MM EXTERNAL REF # [id number] 100 each 11/06/19 20 Active miscellaneous medical supply miscIndications :Neurogenic bladder,Incompl ete bladder emptying BARD LATEX DRAINAGE BAG REF # [id number] 5 each 11/06/19 Active miscellaneous medical supply miscIndications :Neurogenic bladder,Incompl ete bladder emptying COVIDIEN STEFFANIE DRAINAGE BAG 2000 ML REF # [id number] 2 each 11/06/19 Active miscellaneous medical supply miscIndications :Neurogenic bladder,Incompl ete bladder emptying WIDE BAND EXTERNAL CATH 36MM REF # [id number] 10 each 11/06/19 Active miscellaneous medical supply miscIndications :Neurogenic bladder,Incompl ete bladder emptying TENNA ULTRA WASHCLOTH 8 X 12.5 100 each 11/06/19 Active multivitamin tabletIndicatio ns:Vitamin Deficiency Prevention Take 1 tablet by mouth daily 30 tablet 02/25/20 Active bllwdntk-fuc-eu rrous sulfate (One Daily Multi-Vit w-Mineral) 4.5 [...] DAILY FOR 2 WEEKS 03/30/19 24 Active Oysco 500/D 500 mg-5 mcg (200 unit) per tablet TAKE 1 TABLET BY MOUTH TWICE DAILY WITH MEALS 60 tablet 02/22/20 24 Active fesoterodine 8 mg tablet extended release 24 hr Take 1 tablet (8 mg total) by mouth daily 30 tablet 11 02/22/20 24 Active cholecalciferol (D3-2000) 2000 unit [...] as needed for muscle spasms 90 tablet 08/07/19 25 Active Azo Cranberry Plus Probiotic 250-30-15 mg tablet TAKE 2 TABLETS BY MOUTH TWICE DAILY 120 tablet 09/19/19 25 Active surgical lubricant jelly (surgical lubricant) gel APPLY TOPICALLY DIRECTED 1445.88 g 10/12/19 25 Active baclofen (LIORESAL) 10 mg tablet TAKE 1 TABLET BY MOUTH FOUR TIMES DAILY AND 2 TABLETS EVERY NIGHT 180 tablet 11/01/19 25 Active multivitamin-ir on-folic acid (Tab-A-Cheryl Multivitamin w-iron) 18-400 mg-mcg tablet TAKE 1 TABLET BY MOUTH DAILY 30 tablet 11/01/19 25 Active ascorbic acid (VITAMIN C) 1,000 mg tablet TAKE 1 TABLET BY MOUTH EVERY DAY 30 tablet 11/06/19 25 Active HYDROcodone-marin taminophen (NORCO) 7.5-325 mg per tabletIndicatio ns: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,Pain,spi nal cord injury related pain Take 1 tablet by mouth daily 30 tablet 11/30/19 25 Active HYDROcodone-marin taminophen (NORCO) 7.5-325 mg per tabletIndicatio ns: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,Pain,spi nal cord injury related pain Take 1 tablet by mouth daily 30 tablet 11/01/19 25 025 Omega david(Lizzy guanako) Active Problems Problem Noted Date Diagnosed Date Neurogenic bladder 04/06/2024 Neurogenic bowel 06/17/2020 Incomplete bladder emptying 02/05/2019 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 06/26/2018 Nephrolithiasis 01/30/2018 Neurogenic bladder 11/10/2017 Paraplegia, unspecified 11/08/2017 Muscle spasticity 11/08/2017 Neuropathic pain 11/08/2017 Encounters Date Type Department Care Team Description 11/20/2024 Documentation [facility] Medicine Orthopaedic Surgery [address] [facility] [address] [place] [address] [place] [address] Kelvin Rodriguez MD 11/15/2024 9:15 AM CDT - 11/15/2024 11:59 PM CDT Hospital Encounter [facility] [address] [place] [address] Paraplegia Discharge Disposition: Discharge to home or self care 11/13/2024 Telephone [facility] ([facility]) [address] [place] [address] Erma Ivy RT 11/05/2024 Orders Only [facility] Orthopaedic Surgery [address] [facility] [address] [place] [address] [place] [address] Kelvin Rodriguez MD Neuropathic pain (Primary Dx); Paraplegia, unspecified 11/02/2024 Telephone [facility] Medicine Orthopaedic Surgery [address] [place] [address] Lenka Maza BS [id number] 10/31/2024 2:00 PM CDT Office Visit [facility] Orthopaedic Surgery [facility] 12th [place] [address] [place] [address] Kelvin Rodriguez MD Paraplegia (Primary Dx); Muscle spasticity; Neurogenic bladder; Neurogenic bowel; Midline thoracic back pain, unspecified chronicity from Last 3 Months Immunizations Immunization Administration [...] on file Legal Sex Male 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 Gender Identity Male 03/18/2024 2:20 PM CAR BUILDER Sexual Orientation Straight 03/18/2024 2: 20 PM CAR BUILDER Obstetrics History Last Filed Vital Signs Vital Sign Reading Time Taken Comments Blood Pressure 156/82 10/31/2024 2:09 PM CDT Pulse 85 10/31/2024 2:09 PM CDT Temperature 36.5 C (97.7 F) 06/15/2021 10:51 AM CDT Respiratory Rate 18 07/04/2023 9:23 AM CDT Oxygen Saturation - - Inhaled Oxygen Concentration - - Weight 95.3 kg (210 lb) 10/31/2024 2:09 PM CDT Height 172.7 cm (5' 8) 07/04/2023 9:23 AM CDT Body Mass Index 31.93 07/04/2023 9:23 AM CDT Plan of Treatment Health Maintenance Due Date Last Done Comments Colon Cancer Screening-Colonoscopy 1969 Depression Screening 1969 Hepatitis C Screening 1969 DTaP/Tdap/Td Vaccine (1 - Tdap) 1980 Hepatitis B Screening 1987 Regular Well Visit/Exam 18-64 1987 Zoster Vaccine (1 of 2) 2019 Prostate Cancer Screening-PSA 04/09/2023 04/09/2021 Influenza Vaccine (#1) 2024 0, 12/22/2018, 12/18/2017, Additional history exists Pneumococcal vaccine <65 Aged Out No longer eligible based on patient's age to complete this topic Procedures Procedure Name Priority Date/Time Associated Diagnosis Comments DEXA AXIAL SKELETON BONE DENSITY 1 OR MORE SITES Schedule Routine, Read Routine (OP Routine) 11/15/2024 10:01 AM CDT Paraplegia PSA SCREEN Routine 04/09/2021 10:52 AM CAR BUILDER Prostate cancer screening from Last 3 Months or Most Recently Relevant to Health Maintenance Results * DEXA Axial Skeleton Bone Density Multi Site (11/15/2024 10:01 AM CDT) Anatomical Region Laterality Modality Body N/A Digital Radiogra phy 11/15/2024 11:0 7 AM CDT Impressions 11/15/2024 11:11 AM CDT 1. The bone mineral density of the lumbar spine is increased. There has been a statistically significant increase in bone mineral density since the baseline examination of 04/05/2003. 2. The bone mineral density of the right femoral neck is normal. 3. The bone mineral density of the right total hip is increased. There has been a statistically significant increase in bone mineral density since the baseline examination of 04/05/2003. 4. Overall, the above findings are normal by WHO criteria. 5. Calculation of fracture risk using the FRAX model is not appropriate in certain settings. It was not performed in this patient because the patient met the following condition(s): normal bone density. General comments regarding interpretation of bone density measurements: A) In children, premenopausal woman and males under age 50 not at increased risk for fractures only Z-scores, not T-scores are used to indicate risk. A Z-score above -2.0 is defined as within the expected range for age and Z-score at or less than -2.0 is below the expected range for age. A Z-score below the expected range for age in a patient with recent fractures and/or chronic corticosteroid treatment is consistent with a diagnosis of osteoporosis. B) In post menopausal women and males over 50, comparison of the measured bone mineral density with the average value in young normal subjects (the T-score) has been found to be useful in assessing fracture risk. Fracture risk approximately doubles for each 1.0 standard deviation (SD) in individual's hip or spine bone mineral density is below the average value of young normal subjects. The World Health Organization (WHO) has defined T-scores of -1.0 to -2.5 as diagnostic of low bone mass (OSTEOPENIA), and T-scores of -2.5 or lower to be diagnostic of OSTEOPOROSIS, based on the site of lowest bone density. Note that there will be a change in reporting format and reference databases as patients move from the younger population (group A) to the older population (group B) The National Osteoporosis Foundation (www.nof.org) recommends adequate intake of calcium and vitamin D and regular weight-bearing exercise in all patients. They recommend pharmacologic treatment in postmenopausal women and men age 50 and older presenting with any of the followin) Osteoporosis, after appropriate evaluation to exclude secondary causes. 2) A hip or vertebral (clinical or radiographic) fracture, regardless of the bone density. 3) Low bone mass (Osteopenia) and one or more of: other prior fractures, secondary causes associated with high risk of fracture (such as glucocorticoid use or total immobilization), or computed high risk of fracture (10-yr probability of hip fracture >= 3% or a 10-yr probability of any major osteoporosis-related fracture >= 20% based on the [place].-adapted WHO algorithm), available at http://www.shef.ac.uk/FRAX). Dictated by: Taniya Young MD The radiology attending physician has personally reviewed this study, and had reviewed and/or edited this written report and agrees with it. Electronically signed by: Aneudy Keys M.D. Narrative 11/15/2024 11:11 AM CDT BONE DENSITOMETRY OF THE SPINE AND HIP DATE OF STUDY: 11/15/2024 HISTORY: 54-year-old man with prior vertebral fracture presenting for osteoporosis screening. He is being treated with calcium and vitamin D supplementation. Evaluate bone mineral density. Additional risk factors for fracture: None FINDINGS (SPINE): The bone mineral density of L3, L4 was assessed by dual-energy x-ray absorptiometry. L1 and L2 vertebrae were excluded due to presence of metallic hardware and sclerosis from degenerative changes. The average bone mineral density within this region is 1.685 gm/sq-cm. This is 5.6 standard deviations above the mean of the average bone mineral density for age- and gender-matched subjects (the Z-score). It is 5.3 standard deviations above the mean peak bone mineral density in young adults (the T-score). FINDINGS (FEMORAL NECK): The bone mineral density of the right femoral neck was assessed by dual-energy x-ray absorptiometry. The average bone mineral density within the femoral neck region is 1.055 gm/sq-cm. This is 1.8 standard deviations above the mean of the average bone mineral density for age- and gender-matched subjects (the Z-score). It is 1.9 standard deviations above the mean peak bone mineral density in young adults (the T-score). FINDINGS (TOTAL HIP): The bone mineral density of the right hip was assessed by dual-energy x-ray absorptiometry. The average bone mineral density within the total hip region is 1.209 gm/sq-cm. This is 1.6 standard deviations above the mean of the average bone mineral density for age- and gender-matched subjects (the Z-score). It is 2.2 standard deviations above the mean peak bone mineral density in young adults (the T-score). SUMMARY OF CURRENT RESULTS: Region BMD T-score Z-score AP Spine (L3, L4) 1.685 5.3 5.6 Femoral Neck (Right) 1.055 1.9 1.8 Total Hip (Right) 1.209 2.2 1.6 COMPARISON WITH PREVIOUS RESULTS Region Age BMD T-score BMD Change BMD Change Exam Date g/cm2 vs Baseline vs Previous AP Spine (L3-L4) 11/15/2024 54 1.685 5.3 18.4%* -1.8%* 07/19/2022 52 1.715 5.6 20.5%* 7.7%* 02/25/2010 39 1.592 4.5 11.9%* 11.7%* 03/01/2008 37 1.425 2.9 0.1% -4.6%* 01/28/2006 35 1.494 3.6 5.0%* 5.3%* 08/06/2004 34 1.419 2.9 -0.3% -0.3% 04/05/2003 33 1.423 2.9 Total Hip(Right) 11/15/2024 54 1.209 2.2 4.2%* -0.6% 07/19/2022 52 1.215 2.2 4.8%* 6.1%* 02/25/2010 39 1.145 1.7 -1.3% -7.8%* 03/01/2008 37 1.242 2.5 7.1%* 6.7%* 01/28/2006 35 1.164 1.8 0.3% 5.7%* 08/06/2004 34 1.100 1.3 -5.1%* -5.1%* 04/05/2003 33 1.160 1.8 *Denotes significance at 95% confidence level Procedure Note Aneudy Keys MD - 11/15/2024 BONE DENSITOMETRY OF THE SPINE AND HIP DATE OF STUDY: 11/15/2024 HISTORY: 54-year-old man with prior vertebral fracture presenting for osteoporosis screening. He is being treated with calcium and vitamin D supplementation. Evaluate bone mineral density. Additional risk factors for fracture: None FINDINGS (SPINE): The bone mineral density of L3, L4 was assessed by dual-energy x-ray absorptiometry. L1 and L2 vertebrae were excluded due to presence of metallic hardware and sclerosis from degenerative changes. The average bone mineral density within this region is 1.685 gm/sq-cm. This is 5.6 standard deviations above the mean of the average bone mineral density for age- and gender-matched subjects (the Z-score). It is 5.3 standard deviations above the mean peak bone mineral density in young adults (the T-score). FINDINGS (FEMORAL NECK): The bone mineral density of the right femoral neck was assessed by dual-energy x-ray absorptiometry. The average bone mineral density within the femoral neck region is 1.055 gm/sq-cm. This is 1.8 standard deviations above the mean of the average bone mineral density for age- and gender-matched subjects (the Z-score). It is 1.9 standard deviations above the mean peak bone mineral density in young adults (the T-score). FINDINGS (TOTAL HIP): The bone mineral density of the right hip was assessed by dual-energy x-ray absorptiometry. The average bone mineral density within the total hip region is 1.209 gm/sq-cm. This is 1.6 standard deviations above the mean of the average bone mineral density for age- and gender-matched subjects (the Z-score). It is 2.2 standard deviations above the mean peak bone mineral density in young adults (the T-score). SUMMARY OF CURRENT RESULTS: Region BMD T-score Z-score AP Spine (L3, L4) 1.685 5.3 5.6 Femoral Neck (Right) 1.055 1.9 1.8 Total Hip (Right) 1.209 2.2 1.6 COMPARISON WITH PREVIOUS RESULTS Region Age BMD T-score BMD Change BMD Change Exam Date g/cm2 vs Baseline vs Previous AP Spine (L3-L4) 11/15/2024 54 1.685 5.3 18.4%* -1.8%* 07/19/2022 52 1.715 5.6 20.5%* 7.7%* 02/25/2010 39 1.592 4.5 11.9%* 11.7%* 03/01/2008 37 1.425 2.9 0.1% -4.6%* 01/28/2006 35 1.494 3.6 5.0%* 5.3%* 08/06/2004 34 1.419 2.9 -0.3% -0.3% 04/05/2003 33 1.423 2.9 Total Hip(Right) 11/15/2024 54 1.209 2.2 4.2%* -0.6% 07/19/2022 52 1.215 2.2 4.8%* 6.1%* 02/25/2010 39 1.145 1.7 -1.3% -7.8%* 03/01/2008 37 1.242 2.5 7.1%* 6.7%* 01/28/2006 35 1.164 1.8 0.3% 5.7%* 08/06/2004 34 1.100 1.3 -5.1%* -5.1%* 04/05/2003 33 1.160 1.8 *Denotes significance at 95% confidence level IMPRESSION: 1. The bone mineral density of the lumbar spine is increased. There has been a statistically significant increase in bone mineral density since the baseline examination of 04/05/2003. 2. The bone mineral density of the right femoral neck is normal. 3. The bone mineral density of the right total hip is increased. There has been a statistically significant increase in bone mineral density since the baseline examination of 04/05/2003. 4. Overall, the above findings are normal by WHO criteria. 5. Calculation of fracture risk using the FRAX model is not appropriate in certain settings. It was not performed in this patient because the patient met the following condition(s): normal bone density. General comments regarding interpretation of bone density measurements: A) In children, premenopausal woman and males under age 50 not at increased risk for fractures only Z-scores, not T-scores are used to indicate risk. A Z-score above -2.0 is defined as within the expected range for age and Z-score at or less than -2.0 is below the expected range for age. A Z-score below the expected range for age in a patient with recent fractures and/or chronic corticosteroid treatment is consistent with a diagnosis of osteoporosis. B) In post menopausal women and males over 50, comparison of the measured bone mineral density with the average value in young normal subjects (the T-score) has been found to be useful in assessing fracture risk. Fracture risk approximately doubles for each 1.0 standard deviation (SD) in individual's hip or spine bone mineral density is below the average value of young normal subjects. The World Health Organization (WHO) has defined T-scores of -1.0 to -2.5 as diagnostic of low bone mass (OSTEOPENIA), and T-scores of -2.5 or lower to be diagnostic of OSTEOPOROSIS, based on the site of lowest bone density. Note that there will be a change in reporting format and reference databases as patients move from the younger population (group A) to the older population (group B) The National Osteoporosis Foundation (www.nof.org) recommends adequate intake of calcium and vitamin D and regular weight-bearing exercise in all patients. They recommend pharmacologic treatment in postmenopausal women and men age 50 and older presenting with any of the followin) Osteoporosis, after appropriate evaluation to exclude secondary causes. 2) A hip or vertebral (clinical or radiographic) fracture, regardless of the bone density. 3) Low bone mass (Osteopenia) and one or more of: other prior fractures, secondary causes associated with high risk of fracture (such as glucocorticoid use or total immobilization), or computed high risk of fracture (10-yr probability of hip fracture >= 3% or a 10-yr probability of any major osteoporosis-related fracture >= 20% based on the [place].-adapted WHO algorithm), available at http://www.shef.ac.uk/FRAX). Dictated by: Taniya Young MD The radiology attending physician has personally reviewed this study, and had reviewed and/or edited this written report and agrees with it. Electronically signed by: Aneudy Keys M.D. us Kelvin Rodriguez MD IMG DXA PROCEDURES Final R esult * PSA screen (04/09/2021 10:52 AM CAR BUILDER) PSA-Total 1.31 <=3.90 ng/mL [facility] Comment: Interpretive Data AGE SEX REFERENCE INTERVAL 0 minutes-150 years Female None 0 minutes-49 years Male None 50-59 years Male 0-3.90 60-69 years Male 0-5.40 70-79 years Male 0-6.20 80-150 years Male 0-6.20 Current interpretive data last revised 2017. Blood 04/09/2021 10:5 2 AM CAR BUILDER 04/09/2021 11:26 AM CAR BUILDER us Amanda Nicholas NP LAB BLOOD ORDERABLES Fi nal Result [facility] [address] [facility] Department [place] [address] from Last 3 Months or Most Recently Relevant to Health Maintenance Insurance [employer] GENERIC Care Teams Hoop Expander Relationship Specialty Start Date End Date Myles Maddox MD [address] [place] [place] [address] PCP - General 07/14/16
[2024-12-13 09:17] LABS: Hematocrit 42.1 % (42.0-52.0); Hemoglobin 14.3 g/dL (14.0-18.0); Immature Granulocyte Percent A 0.5 % (0-0.5); Lymphocytes Absolute Auto 1.20 K/mm3 (0.9-3.2); Mean Corpuscular HGB Conc 34.0 g/dl (32-36); Mean Corpuscular Hemoglobin 29.5 pg (26-34); Mean Corpuscular Volume 87.0 fl (80-100); Nucleated Red Blood Cells Absolute Auto 0.000 K/mm3 (0.0-0.012); Nucleated Red Blood Cells Perc 0.0 % (0.0-0.2); Platelet Count Result 219 k/mm3 (150-375); Red Blood Count 4.84 M/mm3 (4.6-6.20); White Blood Count 6.6 K/mm3 (4.5-10.0)
[2024-12-13 09:36] LABS: Alanine Aminotransferase 18 U/L (6-50); Albumin Level 3.7 g/dL (3.5-5.1); Alkaline Phosphatase 73 U/L (38-126); Anion Gap 4 mmol/L (4-12); Aspartate Amino Transferase 29 U/L (17-59); Bilirubin,Total 0.4 mg/dL (0.2-1.3); Blood Urea Nitrogen 14 mg/dL (9-20); Calcium 8.4 mg/dL (8.4-10.2); Carbon Dioxide 28 mmol/L (22-30); Chloride 105 mmol/L (98-107); Estimated Glomerular Filt Rate > 60; Glucose 116 mg/dL (65-110); Potassium 3.6 mmol/L (3.4-5.0); Sodium 137 mmol/L (137-145); Total Protein 6.6 g/dL (6.3-8.2)
== END 2024-12-13 08:40 | disposition home or self-care (01) ==
LOC: ANHLAB 08:41
PROVIDERS: PCP Emergency Medicine; Visit Provider Emergency Medicine
DX: E78.5 Hyperlipidemia, unspecified (principal); I10 Essential (primary) hypertension; E55.9 Vitamin D deficiency, unspecified
CPT/HCPCS: 36415; 80053; 82306; 85025

== ENCOUNTER 2025-02-04 12:46 | Outpatient (CLI) | payer OTHER, SELFPAY ==
--- OUTSIDE RECORDS SUMMARY | 1999-09-03 04:45 | XMS_ITS | Continuity of Care Document ---
Author Organization [facility] Address [address] [place] [address] Phone Care Team Providers Care Display Artist Name Role Phone Jamila Guerrier Unavailable Unavailable Advance Directives Directive Yes / No Effective Date File Name No Information Encounters Encounter Description Practice Location Reason(s) For Visit Diagnoses Date Provider Providers Copied on Encounter [facility], [address], [place], [place], [id number], [place] tel:[phone] [facility] No Information Baudilio-0 8-200 0 Chey Marino. [address] , [address], [place], [address], [place]. tel:[phone] Family History Family Member Type Diagnosis Age At Onset No Information Payers Payer name Insurance type Covered green party ID Authoryuria andres(s) Workers Compensation [id number] Social History Type Description Quantity Date Captured Comments Sex Male Smoking Status No Information Chief Complaint And Reason For Visit No Information Reason For Referral Reason For Referral No Information History Of Present Illness Encounter Date Complaint History Of Prese nt Illness No Information Functional Status Date Functional Assessmen t No Information Instructions Date Instruction Additional Infor mation No Information Assessments Type Assessment Date No Information Patient Care Teams Name Effective Dates (start - stop) Status Members No Information
--- NOTE | ~2025-02-04 | XR_ITS ---
EXAMINATION: XR finger 1st RT min 2V, 02/04/2025 13:[address] ROLLER ENGINEER HISTORY: RT 1ST DIGIT PAIN COMPARISON: No comparisons available. Findings: No acute fracture or malalignment. Severe degenerative changes of the first metacarpal carpal joint Soft tissues unremarkable. Impression: No acute fracture or malalignment. Reviewed, dictated and finalized at location P. ET ROLLER ENGINEER Impression: No acute fracture or malalignment.
--- NOTE | ~2025-02-04 | XR_ITS ---
Examination: XR humerus RT Clinical History: M79.601 - Pain in right arm Comparison: None Technique: 2 views right humerus Findings/impression: 1. No fracture or dislocation right humerus. Reviewed, dictated and finalized at location R. D MIXER TENDER
--- OUTSIDE RECORDS SUMMARY | 2025-02-04 13:04 | XMS_ITS | Clinical Summary ---
Author Organization [facility] Address [address] [place] [address] Care Team Providers Care Creative Engagement Director Name Role Phone Myles Maddox MD Primary Care Provide r Allergies No known active allergies Medications lidocaine (GLYDO) 2 % jelly in applicator APPLY DIRECTED. 011 Active menthol-zinc oxide 0.44-20.6 % ointment Apply topically 2 (two) times a day. 226 Tube 2 018 Active silver sulfadiazine (SSD) 1 % cream Apply topically 2 (two) times a day 50 g 11 019 Active miscellaneous medical supply miscIndication s:Incomplete bladder emptying POSITIVETOUCH NON STERILE LARGE GLOVES ITEM #[id number] 100 each 020 Active miscellaneous medical supply miscIndication s:Neurogenic bladder,Incomp lete bladder emptying PREVAIL NIGHTTIME UNDERPAD 30 X 30 ITEM # [id number] 100 each 020 Active miscellaneous medical supply miscIndication s:Neurogenic bladder,Incomp lete bladder emptying MMG STIFF CLOSED SYSTEM INTERM. CATH 14 FR ITEM # [id number] 200 each 020 Active miscellaneous medical supply miscIndication s:Neurogenic bladder,Incomp lete bladder emptying FREEDOM CATH COLOPLAST 35 MM EXTERNAL REF # [id number] 100 each 020 Active miscellaneous medical supply miscIndication s:Neurogenic bladder,Incomp lete bladder emptying BARD LATEX DRAINAGE BAG REF # [id number] 5 each Active miscellaneous medical supply miscIndication s:Neurogenic bladder,Incomp lete bladder emptying COVIDIEN STEFFANIE DRAINAGE BAG 2000 ML REF # [id number] 2 each Active miscellaneous medical supply miscIndication s:Neurogenic bladder,Incomp lete bladder emptying WIDE BAND EXTERNAL CATH 36MM REF # [id number] 10 each Active miscellaneous medical supply miscIndication s:Neurogenic bladder,Incomp lete bladder emptying TENNA ULTRA WASHCLOTH 8 X 12.5 100 each Active multivitamin tabletIndicati ons:Vitamin Deficiency Prevention Take 1 tablet by mouth daily 30 tablet 11 Active tyfwdlix-xdt-b errous sulfate (One Daily Multi-Vit w-Mineral) 4.5 mg iron tablet Take 1 tablet by mouth daily 30 tablet 11 Active naloxone (NARCAN) 4 mg/actuation spray,non-aero ava Administer 1 spray into affected nostril(s) as needed for opioid reversal or respiratory depression Call 911. Administer a single spray in one nostril. Repeat every 3 minutes as needed if no or minimal response. 1 each 3 022 Active naloxone (NARCAN) 4 mg/actuation spray,non-aero solIndications :Opiate-Induce d Respiratory Depression Administer 1 spray into affected nostril(s) as needed for opioid reversal Call 911. Administer a single spray in one nostril. Repeat every 3 minutes as needed if no or minimal response. 2 each 1 023 Active sennosides (SENNA LAX ORAL) Take 2 tablets by mouth 023 Active hydrocortisone (ANUSOL-HC) 2.5 % rectal cream APPLY RECTALLY TO THE AFFECTED AREA TWICE DAILY FOR 2 WEEKS 024 Active terazosin (HYTRIN) 5 mg capsule TAKE 3 CAPSULES(15 MG) BY MOUTH EVERY NIGHT 270 capsule 3 024 Active desmopressin (DDAVP) 0.1 mg tablet TAKE 1 TABLET (0.1 MG) BY MOUTH THREE TIMES DAILY. 90 tablet 11 024 Active bisacodyL (DULCOLAX) 10 mg suppositoryInd ications:const ipation Insert 1 suppository (10 mg total) into the rectum daily 90 suppository 11 Active senna-docusate (Stimulant Laxative Plus) 8.6-50 mg Take 2 tablets by mouth nightly 60 tablet 025 Active vibegron 75 mg tablet Take 75 mg by mouth daily 30 tablet 025 2025 Active Azo Cranberry Plus Probiotic 250-30-15 mg tablet TAKE 2 TABLETS BY MOUTH TWICE DAILY 120 tablet Active surgical lubricant jelly (surgical lubricant) gel APPLY TOPICALLY DIRECTED 1445.88 g Active baclofen (LIORESAL) 10 mg tablet TAKE 1 TABLET BY MOUTH FOUR TIMES DAILY AND 2 TABLETS EVERY NIGHT 180 tablet Active multivitamin-i evelio-folic acid (Tab-A-Chreyl Multivitamin w-iron) 18-400 mg-mcg tablet TAKE 1 TABLET BY MOUTH DAILY 30 tablet Active ascorbic acid (VITAMIN C) 1,000 mg tablet TAKE 1 TABLET BY MOUTH EVERY DAY 30 tablet Active diazePAM (VALIUM) 5 mg tabletIndicati ons:Muscle Spasm,Parapleg ia,Spinal Cord Injury Take 1 tablet (5 mg total) by mouth every 8 (eight) hours as needed for muscle spasms 90 tablet 5 Active HYDROcodone-ac etaminophen (NORCO) 7.5-325 mg per tabletIndicati ons:Neuropathi c Pain Associated with Spinal Cord Injury,Pain,sp inal cord injury related pain Take 1 tablet by mouth daily 30 tablet Active calcium carbonate-bernie min D3 (Oysco 500/D) 1,250mg (500mg elemental) - 5 mcg (200 units) per tablet Take 1 tablet by mouth daily 60 tablet Active fesoterodine 8 mg tablet extended release 24 hr Take 1 tablet (8 mg total) by mouth daily 30 tablet Active cholecalcifero l (VITAMIN D-3) 2000 unit capsule TAKE ONE CAPSULE BY MOUTH DAILY 90 capsule 3 025 Active Oysco 500/D 500 mg-5 mcg (200 unit) per tablet TAKE 1 TABLET BY MOUTH TWICE DAILY WITH MEALS 60 tablet 02/21/2 024 2024 Discontinued(R eorder) fesoterodine 8 mg tablet extended release 24 hr Take 1 tablet (8 mg total) by mouth daily 30 tablet 11 024 2024 Discontinued(R eorder) cholecalcifero l (D3-2000) 2000 unit capsule Take 1 capsule (2,000 Units total) by mouth daily 90 capsule 3 024 2024 Discontinued diazePAM (VALIUM) 5 mg tabletIndicati ons:Muscle Spasm,Parapleg ia,Spinal Cord Injury Take 1 tablet (5 mg total) by mouth every 8 (eight) hours as needed for muscle spasms 90 tablet 5 025 2024 Discontinued(R eorder) HYDROcodone-ac etaminophen (NORCO) 7.5-325 mg per tabletIndicati ons:Neuropathi c Pain Associated with Spinal Cord Injury,Pain,sp inal cord injury related pain Take 1 tablet by mouth daily 30 tablet 025 2024 Discontinued(R eorder) calcium carbonate-bernie min D3 (Oysco 500/D) 1,250mg (500mg elemental) - 5 mcg (200 units) per tablet Take 1 tablet by mouth daily 60 tablet 11 025 2024 Discontinued(R eorder) Active Problems Problem Noted Date Diagnosed Date Neurogenic bladder 04/06/2024 Neurogenic bowel 06/17/2020 Incomplete bladder emptying 02/05/2019 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 06/26/2018 Nephrolithiasis 01/30/2018 Neurogenic bladder 11/10/2017 Paraplegia, unspecified 11/08/2017 Muscle spasticity 11/08/2017 Neuropathic pain 11/08/2017 Encounters Date Type Department Care Team Description 01/29/2025 Orders Only [facility] - [facility] Medicine Urology [address] [place] [address] [place] [address] Sami Winchester NP 11/20/2024 Documentation [facility] Medicine Orthopaedic Surgery [address] [place] [address] [place] [address] Kelvin Rodriguez MD 11/15/2024 9:15 AM CDT - 11/15/2024 11:59 PM CDT Hospital Encounter [facility] [address] [place] [address] Paraplegia Discharge Disposition: Discharge to home or self care 11/13/2024 Telephone [facility] ([facility]) [address] [place] [address] Erma Ivy, 11/05/2024 Orders Only [facility] Medicine Orthopaedic Surgery [address] [facility] [address] [place] [address] [place] [address] Kelvin Rodriguez MD Neuropathic pain (Primary Dx); Paraplegia, unspecified from Last 3 Months Immunizations Immunization Administration [...] on file Legal Sex Male 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 us Kelvin Rodriguez MD IM DXA PROCEDURES Final R esult * PSA screen (04/09/2021 10:52 AM BUNKER WORKER) [facility] PSA-Total 1.31 <=3.90 ng/mL ANASTASIIA ARIAS Comment: Interpretive Data AGE SEX REFERENCE INTERVAL 0 minutes-150 years Female None 0 minutes-49 years Male None 50-59 years Male 0-3.90 60-69 years Male 0-5.40 70-79 years Male 0-6.20 80-150 years Male 0-6.20 Current interpretive data last revised 2017. Blood 04/09/2021 10:5 2 AM BUNKER WORKER 04/09/2021 11:26 AM BUNKER WORKER us Amanda Nicholas NP LAB BLOOD ORDERABLES Fi nal Result ANASTASIIA ARIAS [facility] Department [place] [address] from Last 3 Months or Most Recently Relevant to Health Maintenance Insurance [employer] WORKERS COMPENSATION GENERIC Member Subscriber Plan / Payer (Ef fective 2022-Present) Name:Nena Abreu Relation to Subscriber:Self Name:Nena Abreu Payer ID:[id number] Group ID:Not on file Type:WORKERS COMPENSATION Address: [place] [id number] WORKERS COMPENSATION GENERIC WORKERS COMPENSATION GENERIC Care Teams Creative Engagement Director Relationship Specialty Start Date End Date Myles Maddox MD [address], [place] [address] [facility] - General 07/14/16
--- OUTSIDE RECORDS SUMMARY | 2025-02-04 13:04 | XMS_ITS | Clinical Summary ---
Author Organization [facility] Address [address] [place] [address] Care Team Providers Care Vamp Seamer Name Role Phone None, Provider MD Primary [...] C 1987 DTaP, Tdap and Td Vaccines (1 - Tdap) 1988 Hepatitis B Vaccines (1 of 3 - 19+ 3-dose series) 1988 Pneumococcal Vaccine: 50+ Years (1 of 1 - PCV) 2019 Zoster Vaccines (1 of 2) 2019 COVID-19 Vaccine ( - 2024- season) 2024 04/16/2021, 06/26/2020, 05/29/2020 Influenza Adult (#1) 2024 12/24/2021, 12/21/2020, 12/24/2019, Additional history exists Hepatitis A Vaccines Aged Out No long er eligible based on patient's age to complete this topic Meningococcal B Vaccine Aged Out No l onger eligible based on patient's age to complete this topic Meningococcal Vaccine Aged Out No lizette danielle eligible based on patient's age to complete this topic RSV Immunizations Under 20 Months Aged Out No longer eligible based on patient's age to complete this topic Care Teams Vamp Seamer Relationship Specialty Start Date End Date None, Provider, PCP - General UNKNOWN PHYSICIAN SPECIALTY 06/28/22
--- OUTSIDE RECORDS SUMMARY | 2025-02-04 13:04 | XMS_ITS | Encounter Summary ---
Author Organization [facility] Healthcare Address [address] [place] [address] Care Team Providers Care Supervisor Drilling And Shooting Name Role Phone Myles Maddox MD Primary Care Provide r Encounter Details Date Type Department Care Team (Late st Contact Info) Description 11/13/2024 Telephone [facility] ([facility]) [address] [place] [address] Erma Ivy, RT Social History Tobacco Use Types Packs/Day Years Used Date Smoking Tobacco: Never Smokeless Tobacco: Never Sex and Gender Information Value Date Recorded Sex Assigned at Not on file Legal Sex Male 10:41 PM SIGNS CLEANER Gender Identity Male 03/18/2024 2:20 PM SIGNS CLEANER Sexual Orientation Straight 03/18/2024 2: 20 PM SIGNS CLEANER documented as of this encounter Plan of Treatment Not on file documented as of this encounter Visit Diagnoses Not on filedocumented in this encounter Care Teams Supervisor Drilling And Shooting Relationship Specialty Start Date End Date Myles Maddox MD [address] [address] PCP - General 07/14/16 documented as of this encounter
== END 2025-02-04 12:47 | disposition home or self-care (01) ==
PROVIDERS: PCP Emergency Medicine; Visit Provider Emergency Medicine
DX: M18.11 Unilateral primary osteoarthritis of first carpometacarpal joint, right hand (principal); M79.601 Pain in right arm
CPT/HCPCS: 73060; 73140

== ENCOUNTER 2025-03-13 13:57 | Outpatient (CLI) | payer OTHER, SELFPAY ==
--- NOTE | ~2025-03-13 | XR_ITS ---
EXAMINATION: XR hip BI 2V w AP pelvis, 03/13/2025 14:25 RANCH HAND HISTORY: paraplegia COMPARISON: No comparisons available. Findings: Fixation of the left femur. No acute fracture. Moderate degenerative changes. Soft tissues unremarkable. Impression: No acute fracture or malalignment. Reviewed, dictated and finalized at location P. H HAND Impression: No acute fracture or malalignment.
--- OUTSIDE RECORDS SUMMARY | 2025-03-13 16:34 | XMS_ITS | Clinical Summary ---
Author Organization [facility] Address [address] [place] [address] Care Team Providers Care Geothermal Operations Manager Name Role Phone None, Provider MD Primary [...] age to complete this topic Care Teams Geothermal Operations Manager Relationship Specialty Start Date End Date None, Provider, PCP - General UNKNOWN PHYSICIAN SPECIALTY 06/28/22
--- OUTSIDE RECORDS SUMMARY | 2025-03-13 16:34 | XMS_ITS | Encounter Summary ---
Author Organization [facility] Healthcare Address [address] [place] [address] Care Team Providers Care Metal Base Blocker Name Role Phone Myles Maddox MD Primary Care Provide r Encounter Details Date Type Department Care Team (Late st Contact Info) Description 11/13/2024 Telephone [facility] ([facility]) [address] [place] [address] Erma Ivy, RT Social History Tobacco Use Types Packs/Day Years Used Date Smoking Tobacco: Never Smokeless Tobacco: Never Sex and Gender Information Value Date Recorded Sex Assigned at Not on file Legal Sex Male 10:41 PM FIXTURE RELAMPER Gender Identity Male 03/18/2024 2:20 PM FIXTURE RELAMPER Sexual Orientation Straight 03/18/2024 2: 20 PM FIXTURE RELAMPER documented as of this encounter Plan of Treatment Not on file documented as of this encounter Visit Diagnoses Not on filedocumented in this encounter Care Teams Metal Base Blocker Relationship Specialty Start Date End Date Myles Maddox MD [address] [place] [address] PCP - General 07/14/16 documented as of this encounter
--- OUTSIDE RECORDS SUMMARY | 2025-03-13 16:34 | XMS_ITS | Clinical Summary ---
Author Organization [facility] Address [address] [place] [address] Care Team Providers Care Supervisor Burling And Joining Name Role Phone Myles Maddox MD Primary [...] emptying POSITIVETOUCH NON STERILE LARGE GLOVES ITEM #[id number] 100 each 11/06/19 Active miscellaneous medical supply miscIndications :Neurogenic bladder,Incompl ete bladder emptying PREVAIL NIGHTTIME UNDERPAD 30 X 30 ITEM # [id number] 100 each 11/06/19 20 Active miscellaneous medical supply miscIndications :Neurogenic bladder,Incompl ete bladder emptying MMG STIFF CLOSED SYSTEM INTERM. CATH 14 FR ITEM # [id number] 200 each 11/06/19 20 Active miscellaneous medical supply miscIndications :Neurogenic bladder,Incompl ete bladder emptying FREEDOM CATH COLOPLAST 35 MM EXTERNAL REF # [id number] 100 each 11/06/19 20 Active miscellaneous medical supply miscIndications :Neurogenic bladder,Incompl ete bladder emptying BARD LATEX DRAINAGE BAG REF # [id number] 5 each 11/06/19 Active miscellaneous medical supply miscIndications :Neurogenic bladder,Incompl ete bladder emptying COVIDIEN STEFFANIE DRAINAGE BAG 2000 ML REF # [id number] 2 each 11/06/19 Active miscellaneous medical supply miscIndications :Neurogenic bladder,Incompl ete bladder emptying WIDE BAND EXTERNAL CATH 36MM REF # [id number] 10 each 11/06/19 Active miscellaneous medical supply miscIndications :Neurogenic bladder,Incompl ete bladder emptying TENNA ULTRA WASHCLOTH 8 X 12.5 100 each 11/06/19 Active multivitamin tabletIndicatio ns:Vitamin Deficiency Prevention Take 1 tablet by mouth daily 30 tablet 02/25/20 Active aueywkqo-xjs-bn rrous sulfate (One Daily Multi-Vit w-Mineral) 4.5 [...] DAILY FOR 2 WEEKS 03/30/19 24 Active bisacodyL (DULCOLAX) 10 mg suppositoryIndi cations:constip ation Insert 1 suppository (10 mg total) into the rectum daily 90 suppository 06/07/19 25 Active senna-docusate (Stimulant Laxative Plus) 8.6-50 mg Take 2 tablets by mouth nightly 60 tablet 07/11/19 25 Active vibegron 75 mg tablet Take 75 mg by mouth daily 30 tablet 07/17/19 25 026 Active Azo Cranberry Plus Probiotic 250-30-15 mg [...] EVERY DAY 30 tablet 11/06/19 25 Active diazePAM (VALIUM) 5 mg tabletIndicatio ns:Muscle Spasm,Paraplegi a,Spinal Cord Injury Take 1 tablet (5 mg total) by mouth every 8 (eight) hours as needed for muscle spasms 90 tablet 5 01/29/20 25 Active fesoterodine 8 mg tablet extended release 24 hr Take 1 tablet (8 mg total) by mouth daily 30 tablet 11 01/30/20 25 Active cholecalciferol (VITAMIN D-3) 2000 unit capsule TAKE ONE CAPSULE BY MOUTH DAILY 90 capsule 3 02/01/20 25 Active calcium carbonate-vitam in D3 (Oysco 500/D) 1,250mg (500mg elemental) - 5 mcg (200 units) per tablet Take 2 tablets by mouth daily 60 tablet 11 02/09/20 25 Active HYDROcodone-marin taminophen (NORCO) 7.5-325 mg per tabletIndicatio ns: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,Pain,spi nal cord injury related pain Take 1 tablet by mouth daily 30 tablet 02/28/20 25 Active terazosin (HYTRIN) 5 mg capsule Take 3 capsules (15 mg total) by mouth nightly 270 capsule 3 02/28/20 25 Active desmopressin (DDAVP) 0.1 mg tablet TAKE 1 TABLET (0.1 MG) BY MOUTH THREE TIMES DAILY. 90 tablet 11 02/28/20 25 Active terazosin (HYTRIN) 5 mg capsule TAKE 3 CAPSULES(15 MG) BY MOUTH EVERY NIGHT 270 capsule 3 03/22/20 24 025 Disconti nued(Reo rder) desmopressin (DDAVP) 0.1 mg tablet TAKE 1 TABLET (0.1 MG) BY MOUTH THREE TIMES DAILY. 90 tablet 11 03/22/20 24 025 Disconti nued(Reo rder) HYDROcodone-marin taminophen (NORCO) 7.5-325 mg per tabletIndicatio ns: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,Pain,spi nal cord injury related pain Take 1 tablet by mouth daily 30 tablet 01/29/20 25 025 Disconti nued(Reo rder) Active Problems Problem Noted Date Diagnosed Date Neurogenic bladder 04/06/2024 Neurogenic bowel 06/17/2020 Incomplete bladder emptying 02/05/2019 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 06/26/2018 Nephrolithiasis 01/30/2018 Neurogenic bladder 11/10/2017 Paraplegia, unspecified 11/08/2017 Muscle spasticity 11/08/2017 Neuropathic pain 11/08/2017 Encounters Date Type Department Care Team Description 03/13/2025 Orders Only [facility] [address] [place] [address] [place] [address] Kelvin Rodriguez MD Paraplegia, unspecified (Primary Dx) 02/08/2025 Orders Only [facility] ([facility] - [facility] [address] [place] [address] [place] [address] Sami Winchester NP 01/29/2025 Orders Only [facility] ([facility]) - [facility] [address] [place] [address] [place] [address] Sami Winchester NP from Last 3 Months Immunizations Immunization Administration [...] on file Legal Sex Male 10:[address] CAR INSPECTOR Gender Identity Male 03/18/2024 2:[address] CAR INSPECTOR Sexual Orientation Straight 03/18/2024 2: [address] CAR INSPECTOR Last Filed Vital Signs Vital Sign Reading [...] Procedure Name Priority Date/Time Associated Diagnosis Comments PSA SCREEN Routine 04/09/2021 10:[address] CAR INSPECTOR Prostate cancer screening from Last 3 Months or Most Recently Relevant to Health Maintenance Results * PSA screen (04/09/2021 10:[address] CAR INSPECTOR) PSA-Total 1.31 <=3.90 ng/mL ANASTASIIA ARIAS Comment: Interpretive Data AGE SEX REFERENCE INTERVAL 0 minutes-150 years Female None 0 minutes-49 years Male None 50-59 years Male 0-3.90 60-69 years Male 0-5.40 70-79 years Male 0-6.20 80-150 years Male 0-6.20 Current interpretive data last revised 2017. Blood 04/09/2021 10:[address] CAR INSPECTOR 04/09/2021 11:[address] CAR INSPECTOR us Amanda Nicholas NP LAB BLOOD ORDERABLES nal Result [facility] [address] [facility] Department [place] [address] from Last 3 Months or Most Recently Relevant to Health Maintenance Insurance WORKERS COMPENSATION GENERIC WORKERS COMPENSATION GENERIC WORKERS COMPENSATION GENERIC Care Teams Supervisor Burling And Joining Relationship Specialty Start Date End Date Mandis, Myles Andre, MD [address] [place] [address] PCP - General 07/14/16
--- OUTSIDE RECORDS SUMMARY | 2025-03-13 16:34 | XMS_ITS | Encounter Summary ---
Author Organization [facility] Address [address] [place] [address] Phone Care Team Providers Care Specialized Language Instructor Name Role Phone Myles Maddox MD Primary Care Provide r Reason for Referral * Diagnostic Imaging (Routine) - Authorized Specialty Diagnoses / Procedures Referred By Contac t Referred To Contact Diagnoses Paraplegia, unspecified Procedures XR Hips Bilateral 2 Views W Pelvis Kelvin Rodriguez MD [address] [facility] [address] [address] Phone: tel: fax: External Order Referral ID Status Reason Start Date Expiration Date V isits Requested Visits Authorized [id number] Authorized 03/13/2025 04/12/2026 1 1 EXTINGUISHER INSTALLER Encounter Details Date Type Department Care Team (Late st Contact Info) Description 03/13/2025 Orders Only [facility] Medicine Orthopaedic Surgery [address] [facility] 12th [place] [address] [place] [address] Kelvin Rodriguez MD [address] [facility] [address] [address] Paraplegia, unspecified (Primary Dx) Social History Tobacco Use Types Packs/Day Years Used Date Smoking Tobacco: Never Smokeless Tobacco: Never Sex and Gender Information Value Date Recorded Sex Assigned at Not on file Legal Sex Male 10:41 PM FIRE EXTINGUISHER INSTALLER Gender Identity Male 03/18/2024 2:20 PM FIRE EXTINGUISHER INSTALLER Sexual Orientation Straight 03/18/2024 2: 20 PM FIRE EXTINGUISHER INSTALLER documented as of this encounter Progress Notes * Kelvin Rodriguez MD - 03/13/2025 11:11 AM CST Order for XR Hip/Pelvis EXTINGUISHER INSTALLER documented in this encounter Plan of Treatment Scheduled Orders Name Type Priority Associated Diagnoses Orde r Schedule XR Hips Bilateral 2 Views W Pelvis Imaging Schedule Routine, Read Routine (OP Routine) Paraplegia, unspecified Expected: 03/13/2025, Expires: 03/13/2026 documented as of this encounter Visit Diagnoses Diagnosis Paraplegia, unspecified- Primary documented in this encounter Care Teams Specialized Language Instructor Relationship Specialty Start Date End Date Myles Maddox MD [address] [place] [address] PCP - General 07/14/16 documented as of this encounter
== END 2025-03-13 13:58 | disposition home or self-care (01) ==
DX: G82.20 Paraplegia, unspecified (principal)
CPT/HCPCS: 73521